=== PATIENT | male | born 1960 | race Caucasian/White ===

== ENCOUNTER 2022-07-26 10:36 | Outpatient (RCR) | payer MEDICARE, MEDICAID, SELFPAY | END 2022-07-26 16:00 | disposition home or self-care (01) | LOC: HO.WCC 10:36 | PROVIDERS: PCP Nurse Practitioner; Visit Provider Physician Assistant | DX: L89.620 Pressure ulcer of left heel, unstageable (principal); L89.610 Pressure ulcer of right heel, unstageable; L97.812 Non-pressure chronic ulcer of other part of right lower leg with fat layer exposed; L97.524 Non-pressure chronic ulcer of other part of left foot with necrosis of bone; M86.072 Acute hematogenous osteomyelitis, left ankle and foot; G90.09 Other idiopathic peripheral autonomic neuropathy; I10 Essential (primary) hypertension; F17.210 Nicotine dependence, cigarettes, uncomplicated | CPT/HCPCS: 11042; 11044; 11045; 87070; 87077; 87147; 87186; 87205 ==

== ENCOUNTER 2022-07-26 13:25 | Inpatient (IN) | payer MEDICARE, SELFPAY ==
--- NOTE | ~2022-07-26 | XR_ITS ---
EXAMINATION: XR CALCANEUS, RIGHT CLINICAL INFORMATION: Ulcer. Evaluate for osteomyelitis. COMPARISON: None TECHNIQUE: Lateral and axial views of the right calcaneus were obtained. FINDINGS: There is a bandage at the posterior heel. There is irregularity of the skin line consistent with history of ulcer. There has been prior amputation of the fifth metatarsal through the proximal diaphyseal shaft of the metatarsal. No acute osseous abnormality. No bone destruction. No radiographic evidence for osteomyelitis. XR/XR calcaneus RT min 2V IMPRESSION: 1. Skin ulcer at the posterior heel. No radiographic evidence for osteomyelitis. MRI would be more sensitive for detection of osteomyelitis. 2. Status post amputation of fifth metatarsal.
--- NOTE | ~2022-07-26 | CT_ITS ---
EXAMINATION: CT FOOT WITH CONTRAST, RIGHT CT FOOT WITH CONTRAST, LEFT CLINICAL INFORMATION: Ulcers. Heel ulcer. COMPARISON: Calcaneal radiograph dated 07/26/2022 TECHNIQUE: Multidetector volumetric imaging was obtained through both feet following intravenous administration of 85 cc Omnipaque 350. Multiplanar reformatted images in coronal and sagittal orientations were submitted. This CT examination was performed using dose optimization techniques as appropriate, variously including the following: *Automated exposure control *Adjustment of mA and/or kV according to patient size (this includes techniques or standardized protocols for targeted exams where dose is matched to indication/reason for exam; i.e. extremities or head) *Use of iterative reconstruction technique DLP: 183 mGy-cm FINDINGS: Right: Soft tissues are swollen at the right foot with significant skin thickening generalized skin thickening and irregularity. A skin wound is suspected posteriorly over the calcaneal tuberosity. There is marked underlying fat stranding with loss of subcutaneous fat attenuation. The great toe is absent. There is significant skin thickening and underlying fat stranding at the stump. There is a small collection of fluid and gas at the distal margin of the second toe distal phalanx with focal bone loss/remodeling along the distal phalangeal tuft, concerning for osteomyelitis and a small overlying abscess. The collection of fluid and gas is very small, measuring approximately 1.4 x 0.7 x 0.6 cm. A small skin wound may also be present at the distal margin of the third toe. The fifth toe and distal two thirds of the fifth metatarsal are surgically absent. No focal osseous erosion is identified in the region of the calcaneal tuberosity deep to the posterior ulcer. No appreciable findings of osteomyelitis are identified at the ankle, hindfoot, and midfoot. No joint effusions. Mild talocrural osteoarthritis. Mild osteophytes in the midfoot at the tarsometatarsal joints. Musculature is atrophic and fatty replaced. No appreciable tenosynovitis. Scratch that Left: Soft tissues are swollen with skin thickening and subcutaneous edema. There is a skin ulcer at the posterolateral aspect of the hindfoot overlying the calcaneal tuberosity with loss of the normal fat attenuation. No underlying fluid collections are identified in this region. No appreciable erosive change at the calcaneus to indicate acute osteomyelitis. A skin ulcer is present at the dorsal aspect of the great toe at the level of the interphalangeal joint measuring roughly 2.5 x 1.5 cm in area extending to the depth of bone. There is erosion at the dorsal aspect of the great toe proximal phalangeal head in this region. There is slight plantar subluxation of the distal phalanx, likely with disruption of the dorsal joint capsule. There is slight valgus angulation at the great toe IP joint. No additional ulcers are identified by CT. No peripherally enhancing fluid collections are identified. No appreciable tenosynovitis. No joint effusions. Foot musculature is diffusely atrophic and fatty replaced. There is minimal osteoarthritis in the talocrural joint. Midfoot appears relatively well-preserved. Multiple claw toe deformities. CT/CT foot LT w IV con IMPRESSION: 1. Posterior skin wounds overlying the bilateral calcaneal tuberosities with s concerning soft tissue inflammation. No appreciable findings of underlying osteomyelitis or abscess. 2. A small 1.4 cm abscess in the distal margin of the second toe distal phalanx with underlying cortical osteolysis at the distal phalangeal tuft, consistent with osteomyelitis. 3. Dorsal ulcer at the great toe IP joint with erosion at the dorsal aspect of the great toe proximal phalangeal head, most consistent with osteomyelitis. There is associated disruption of the IP joint capsule with plantar and valgus subluxation of the distal phalanx. 4. Diffuse soft tissue swelling and subcutaneous edema in the left foot. No abscess.
--- NOTE | ~2022-07-26 | XR_ITS ---
EXAMINATION: XR CALCANEUS, LEFT CLINICAL INFORMATION: Ulcers. Evaluate for osteomyelitis. COMPARISON: None TECHNIQUE: Lateral and axial views of the left calcaneus were obtained. FINDINGS: There is a bandage along the posterior heel. There is evidence of soft tissue ulceration at the posterior heel. There is no bone destruction or abnormal periosteal reaction. There is no radiographic evidence for osteomyelitis. Small plantar calcaneal spur. XR/XR calcaneus LT min 2V IMPRESSION: Soft tissue ulceration at the posterior heel. There is no radiographic evidence for osteomyelitis. MRI would be more sensitive for detection of osteomyelitis.
--- NOTE | ~2022-07-26 | US_ITS ---
EXAMINATION: NONINVASIVE ASSESSMENT OF THE ARTERIES OF BOTH LOWER EXTREMITIES WITH PVR EXAM AND BILATERAL LOWER EXTREMITY DUPLEX Mackenzie Regan MD CLINICAL INFORMATION: Nonhealing ulcer TECHNIQUE: Ankle pulse volume recordings, ankle pressure measurements and ankle brachial indices were obtained of the lower extremity arterial system bilaterally in addition to duplex Doppler techniques with wave form analysis and measurement of velocities in the common femoral, profunda femoral, superficial femoral, popliteal and tibial arteries. The study was performed only at rest. COMPARISON: None FINDINGS: a) AT REST: RIGHT LE. The right ankle-brachial index is: 1.08 * >0.97-1.25 = normal - no significant arterial disease * 0.75-0.96 = mild peripheral arterial disease * 0.5-0.74 = moderate peripheral arterial disease * <0.50 = severe peripheral arterial disease 2. Right ankle pressure: Normal 3. Right ankle PVR waveform: Abnormal 4. Right direct duplex Doppler findings: Common femoral artery: 132 cm/s, Multiphasic Profunda femoris artery: 96 cm/s, Multiphasic Superficial femoral artery (proximal): 149 cm/s, Multiphasic Superficial femoral artery (mid): 130 cm/s, Multiphasic Superficial femoral artery (distal): 111 cm/s, Multiphasic Proximal Popliteal artery: 100 cm/s, Multiphasic Mid posterior tibial artery: 182 cm/s, Multiphasic LEFT LE. The left ankle-brachial index is: 1.31 * >0.97-1.25 = normal - no significant arterial disease * 0.75-0.96 = mild peripheral arterial disease * 0.5-0.74 = moderate peripheral arterial disease * <0.50 = severe peripheral arterial disease 2. Left ankle pressure: normal. 3. Left ankle PVR waveform: Abnormal 4. Left direct duplex Doppler findings: Common femoral artery: 160 cm/s, Multiphasic Profunda femoris artery: 125 cm/s, Multiphasic Superficial femoral artery (proximal): 171 cm/s, Multiphasic Superficial femoral artery (mid): 160 cm/s, Multiphasic Superficial femoral artery (distal): 210 cm/s, Multiphasic Proximal Popliteal artery: 144 cm/s, Multiphasic Mid posterior tibial artery: 177 cm/s, Multiphasic There are bilateral prominent inguinal lymph nodes with normal morphology US/US arterial duplex LE BI IMPRESSION: RIGHT LEG: Scattered areas of mild stenosis throughout the right lower extremity. Abnormal ankle PVR. LEFT LEG: Scattered areas of mild-moderate stenosis throughout the left lower extremity, particularly in the SFA. Abnormal ankle PVR.
--- NOTE | ~2022-07-26 | XR_ITS ---
EXAMINATION: XR TOES, LEFT CLINICAL INFORMATION: Ulceration. Concern for osteomyelitis. COMPARISON: None TECHNIQUE: 3 views of the left toes were obtained. FINDINGS: There is a bandage over the great toe. Irregularity of the skin at the distal medial side of the great toe suggesting ulceration. There is no air in the soft tissue. There is loss of definition of the distal tuft of the distal phalanx of the great toe. This is best appreciated on the lateral view. This is concerning for osteomyelitis. There is also loss of bone of the distal phalange of the second and third toe again best appreciated on lateral view there is no substantial soft tissue swelling evident by plain film of these toes. Clinically correlate. XR/XR toe LT min 2V IMPRESSION: 1. Irregularity of the skin at the distal medial side of the great toe suggesting ulceration. 2. Loss of definition of the distal tuft of the distal phalanx of the great toe concerning for osteomyelitis. MRI would be helpful for further evaluation. 3. Loss of bone of the distal phalange of the second and third toe. Clinically correlate.
[2022-07-26 13:29] VITALS: BP 99/46; PULSE 103; RESP 20; TEMP 37.4; O2SAT 98; BMI 25.7
--- NOTE | 2022-07-26 13:29 | ED_ITS ---
HPI - General Adult General Chief complaint: Skin/Abscess/Foreign Body <LES Jones - Last Filed: 07/26/22 13:34> Stated complaint: L big toe wound sent by wound clinic <LES Jones - Last Filed: 07/26/22 13:34> Time Seen by Provider: 07/26/22 18:25 <LES Jones - Last Filed: 07/26/22 13:34> Source: patient <Ivan Erazo MD - Last Filed: 07/26/22 22:53> Mode of arrival: ambulatory <Ivan Erazo MD - Last Filed: 07/26/22 22:53> Limitations: no limitations <Ivan Erazo MD - Last Filed: 07/26/22 22:53> History of Present Illness HPI narrative: Patient history of chronic low back pain, hypertension, peripheral neuropathy injured his left greater toe 2 months ago since then having nonhealing wound on the dorsum of the greater toe also been having deep ulceration with eschar formation bilateral heel with foul-smelling discharge does have a nurse come to his house for dressing seen by wound clinic today who sent him here for further evaluation as the x-ray showed involvement of the bone of the greater toe x-ray of the heel showed bilateral soft tissue ulcerations without any bony erosion no gas was seen. Patient denies any fever or chills has not taken any antibiotics for this so far, patient has amputation of the right greater toe for same reason in 05/13 patient had vascular studies same time which showed good blood flow. Patient has his peripheral neuropathy for last 20 years been to various doctors and had multiple MRIs of the lumbar spine which likely the cause for neuropathy patient is on gabapentin. <Ivan Erazo MD - Last Filed: 07/26/22 22:53> Related Data Home medications: Home Medications Medication Instructions Recorded Confirmed amlodipine 2.5 mg tablet 2.5 mg PO BID 07/26/22 07/26/22 aspirin 81 mg chewable tablet 81 mg PO DAILY 07/26/22 07/26/22 atorvastatin 80 mg tablet 80 mg PO BEDTIME 07/26/22 07/26/22 xrimyznxej-[id number] 1 tab PO DAILY PRN headache 07/26/22 07/26/22 50 mg-325 mg-40 mg tablet cyclobenzaprine 10 mg tablet 1 tab PO BID PRN Back Pain 07/26/22 07/26/22 docusate sodium 100 mg capsule 300 mg PO DAILY 07/26/22 07/26/22 (Colace) gabapentin 300 mg capsule 1 cap PO BID 07/26/22 07/26/22 morphine 60 mg tablet,extended 60 mg PO Q12H 07/26/22 07/26/22 release trazodone 100 mg tablet 100 mg PO BEDTIME 07/26/22 07/26/22 <LES Jones - Last Filed: 07/26/22 13:34> Allergies/adverse reactions: Allergies Allergy/AdvReac Type Severity Reaction Status Date / Time No Known Allergies Allergy Verified 07/26/22 13:32 <LES Jones - Last Filed: 07/26/22 13:34> Review of Systems Review of Systems: Yes all other systems are reviewed and are negative <Ivan Erazo MD - Last Filed: 07/26/22 22:53> [facility] Past Medical History Medical History: Medical History Amputated toe of right foot Brain aneurysm Hypertension <LES Jones - Last Filed: 07/26/22 13:34> Surgical History: Surgical History History of cholecystectomy Hx of CABG <LES Jones - Last Filed: 07/26/22 13:34> Social History Social History: Social History Alcohol intake: never Smoked in Last 30 Days: Yes Use of substances other than those prescribed or required for medical reasons: No Advance Directives: No Advance Directives Information Provided: No <LES Jones - Last Filed: 07/26/22 13:34> Physical Exam ED Vital Signs: Vital Signs - 24 hr 07/26/22 13:29 07/26/22 19:07 Temperature 99.4 F 99.1 F Pulse Rate 103 H 87 Respiratory Rate 20 18 Blood Pressure 99/46 L 130/50 L Pulse Oximetry 98 99 Oxygen Delivery Method Room Air Room Air BMI result Body Mass Index 25.7 <LES Jones - Last Filed: 07/26/22 13:34> Vital Signs - 24 hr 07/26/22 13:29 07/26/22 19:07 Temperature 99.4 F 99.1 F Pulse Rate 103 H 87 Respiratory Rate 20 18 Blood Pressure 99/46 L 130/50 L Pulse Oximetry 98 99 Oxygen Delivery Method Room Air Room Air BMI result Body Mass Index 25.7 <Ivan Erazo MD - Last Filed: 07/26/22 22:53> Appearance: Alert. Oriented X3. No acute distress. Eyes: PERRLA, No Nystagmus ENT: Pharynx normal. Oral Mucosa moist Neck: Normal inspection. Neck supple. CVS: Normal heart rate and rhythm. Pulses normal. Respiratory: No respiratory distress. Equal air entry bilateral, no wheezing/rales/rhonchi Abdomen: Soft and nontender. Bowel sounds are present, no mass palpable, no CVA tenderness Skin: Skin warm and dry. Normal skin color. Normal skin turgor. Extremities: No lower extremity edema. No calf tenderness decreased dorsalis pedis pulsation bilateral lower extremity, feet are warm bilaterally Neuro: Oriented X 3. No motor deficit. Decreased sensation to light touch and pinprick till knee bilateral.No cerebellar signs , cranial nerves II-XII intact <Ivan Erazo MD - Last Filed: 07/26/22 22:53> Course Course Course Narrative: RME - 61 yo male with history of pre-diabetes, neuropathy, CAD s/p CABG x3, PVD with history of 2 toe amputations on the right foot who presents to the ER from [facility] for evaluation of a left great toe wound that has been worsening for the last 2 months. Today was the 1st time at the Wound Clinic - they did some debridement, there was exposed bone and they were concerned for osteomyelitis so patient was sent to the ER for further evaluation. Has not been on antibiotics since May. No fevers at home. Plan: labs, XRs, blood cultures, possible admission, dispo pending results <LES Jones - Last Filed: 07/26/22 13:34> Medications Administered Discontinued Medications Generic Name Dose Route Start Last Admin Trade Name Freq PRN Reason Stop Dose Admin Piperacillin Sod/Tazobactam 50 mls @ 100 mls/hr 07/26/22 19:48 07/26/22 20:26 Sod 3.375 gm/ Sodium Chloride IV 07/26/22 20:17 100 mls/hr ONCE ONE Administration Sodium Chloride 1,000 mls @ 999 mls/hr 07/26/22 19:49 07/26/22 20:11 Ns IV 07/26/22 20:49 999 mls/hr .Q1H1M ONE Administration Vancomycin HCl 2,000 mg in 520 mls @ 260 mls/hr 07/26/22 20:00 07/26/22 20:57 Vancomycin/Ns IV 07/26/22 21:59 260 mls/hr ONCE ONE Administration <LES Jones - Last Filed: 07/26/22 13:34> Medications Administered Discontinued Medications Generic Name Dose Route Start Last Admin Trade Name Freq PRN Reason Stop Dose Admin Piperacillin Sod/Tazobactam 50 mls @ 100 mls/hr 07/26/22 19:48 07/26/22 20:26 Sod 3.375 gm/ Sodium Chloride IV 07/26/22 20:17 100 mls/hr ONCE ONE Administration Sodium Chloride 1,000 mls @ 999 mls/hr 07/26/22 19:49 07/26/22 20:11 Ns IV 07/26/22 20:49 999 mls/hr .Q1H1M ONE Administration Vancomycin HCl 2,000 mg in 520 mls @ 260 mls/hr 07/26/22 20:00 07/26/22 20:57 Vancomycin/Ns IV 07/26/22 21:59 260 mls/hr ONCE ONE Administration <Ivan Erazo MD - Last Filed: 07/26/22 22:53> Medical Decision Making Medical Decision Making MDM Narrative: Patient with nonhealing wound of bilateral heels and left greater toe x- ray showed bony erosions suggestive of osteomyelitis will admit patient for IV antibiotic and surgical evaluation for amputation <Ivan Erazo MD - Last Filed: 07/26/22 22:53> Consult Healthcare Provider Management of the patient was discussed with: Hospitalist <Ivan Erazo MD - Last Filed: 07/26/22 22:53> Lab Data [facility] Lab Attestation statement: I reviewed the patient's lab results. <Ivan Erazo MD - Last Filed: 07/26/22 22:53> Result Diagrams: 07/26/22 15:51 07/26/22 15:51 <LES Jones - Last Filed: 07/26/22 13:34> Labs: Lab Results 07/26/22 07/26/22 07/26/22 Range/Units 15:51 15:51 15:51 WBC 5.5 (4.8-10.8) X10*3/uL RBC 3.28 L (4.60-5.80) X10*6/uL Hgb 8.9 L (14.0-18.0) g/dl Hct 28.9 L (42.0-52.0) % MCV 88.1 (80.0-98.0) fL MCH 27.1 (27.0-33.0) pg MCHC 30.8 L (31.0-36.0) g/dl RDW 15.3 (11.0-16.0) % Plt Count 225 (160-400) X10*3/uL MPV 9.9 (9.4-12.4) fL Immature Gran % (Auto) 0.2 (0.0-0.4) % Neut % (Auto) 74.1 H (45-73) % Lymph % (Auto) 16.3 L (20-40) % Jack % (Auto) 8.7 (2-11) % Eos % (Auto) 0.5 (0-4) % Baso % (Auto) 0.2 (0-2) % Lymph # (Auto) 0.9 L (1.2-4.9) X10*3/uL Jack # (Auto) 0.5 (0.1-1.2) X10*3/uL Eos # (Auto) 0.0 (0.0-0.4) X10*3/uL Baso # (Auto) 0.0 (0.0-0.2) X10*3/uL Abs Immat Gran (auto) 0.01 (0.00-0.03) X10*3/uL Absolute Neuts (auto) 4.1 (2.0-8.3) x10*3/uL Absolute Nucleated RBC 0.000 (0.0-0.012) X10*3/uL Nucleated RBC % (auto) 0.0 (0.0-0.2) /100WBC Smear Tech's Comments VERIFIED ESR 86 H (0-15) MM/HR Sodium 134 L (135-145) mmol/L Potassium 4.4 (3.3-5.1) mmol/L Chloride 101 (96-108) mmol/L Carbon Dioxide 25 (22-29) mmol/L Anion Gap 12 (12-20) BUN 14 (9-16) mg/dL Creatinine 0.70 (0.5-1.4) mg/dL Estim Creat Clear Calc 103.6 Estimated GFR > 60 Random Glucose 106 (60-115) mg/dL Lactic Acid (0.5-2.0) mmol/L Calcium 8.1 L (8.4-10.2) mg/dL Magnesium 1.8 (1.6-2.6) mg/dL Total Bilirubin 0.5 (0.0-1.0) mg/dL Direct Bilirubin 0.2 (0.0-0.5) mg/dL AST 21 (5-37) U/L ALT 14 (0-40) U/L Alkaline Phosphatase 105 (39-117) U/L C-Reactive Protein 7.13 H (< or = 0.50) mg/dL Total Protein 7.4 (6.5-8.0) g/dL Albumin 3.5 (3.5-5.0) g/dL Urine Color Urine Appearance Urine pH (5.0-9.0) Ur Specific [place] (1.005-1.025) Urine Protein (Neg-Trace) mg/dL Urine Glucose (UA) (Negative) mg/dL Urine Ketones (Negative) mg/dL Urine Blood (Negative) Urine Nitrite (Negative) Ur Leukocyte Esterase (Negative) COVID-19 (ASHER) (Negative) COVID-19 Clin Com 07/26/22 07/26/22 07/26/22 Range/Units 15:51 15:51 15:58 WBC (4.8-10.8) X10*3/uL RBC (4.60-5.80) X10*6/uL Hgb (14.0-18.0) g/dl Hct (42.0-52.0) % MCV (80.0-98.0) fL MCH (27.0-33.0) pg MCHC (31.0-36.0) g/dl RDW (11.0-16.0) % Plt Count (160-400) X10*3/uL MPV (9.4-12.4) fL Immature Gran % (Auto) (0.0-0.4) % Neut % (Auto) (45-73) % Lymph % (Auto) (20-40) % Jack % (Auto) (2-11) % Eos % (Auto) (0-4) % Baso % (Auto) (0-2) % Lymph # (Auto) (1.2-4.9) X10*3/uL Jack # (Auto) (0.1-1.2) X10*3/uL Eos # (Auto) (0.0-0.4) X10*3/uL Baso # (Auto) (0.0-0.2) X10*3/uL Abs Immat Gran (auto) (0.00-0.03) X10*3/uL Absolute Neuts (auto) (2.0-8.3) x10*3/uL Absolute Nucleated RBC (0.0-0.012) X10*3/uL Nucleated RBC % (auto) (0.0-0.2) /100WBC Smear Tech's Comments ESR (0-15) MM/HR Sodium (135-145) mmol/L Potassium (3.3-5.1) mmol/L Chloride (96-108) mmol/L Carbon Dioxide (22-29) mmol/L Anion Gap (12-20) BUN (9-16) mg/dL Creatinine (0.5-1.4) mg/dL Estim Creat Clear Calc Estimated GFR Random Glucose (60-115) mg/dL Lactic Acid 1.7 (0.5-2.0) mmol/L Calcium (8.4-10.2) mg/dL Magnesium (1.6-2.6) mg/dL Total Bilirubin (0.0-1.0) mg/dL Direct Bilirubin (0.0-0.5) mg/dL AST (5-37) U/L ALT (0-40) U/L Alkaline Phosphatase (39-117) U/L C-Reactive Protein (< or = 0.50) mg/dL Total Protein (6.5-8.0) g/dL Albumin (3.5-5.0) g/dL Urine Color Yellow Urine Appearance Clear Urine pH 6.5 (5.0-9.0) Ur Specific [place] 1.015 (1.005-1.025) Urine Protein Trace (Neg-Trace) mg/dL Urine Glucose (UA) Negative (Negative) mg/dL Urine Ketones Negative (Negative) mg/dL Urine Blood Negative (Negative) Urine Nitrite Negative (Negative) Ur Leukocyte Esterase Negative (Negative) COVID-19 (ASHER) Negative (Negative) COVID-19 Clin Com See Note <LES Jones - Last Filed: 07/26/22 13:34> Lab Results 07/26/22 07/26/22 07/26/22 Range/Units 15:51 15:51 15:51 WBC 5.5 (4.8-10.8) X10*3/uL RBC 3.28 L (4.60-5.80) X10*6/uL Hgb 8.9 L (14.0-18.0) g/dl Hct 28.9 L (42.0-52.0) % MCV 88.1 (80.0-98.0) fL MCH 27.1 (27.0-33.0) pg MCHC 30.8 L (31.0-36.0) g/dl RDW 15.3 (11.0-16.0) % Plt Count 225 (160-400) X10*3/uL MPV 9.9 (9.4-12.4) fL Immature Gran % (Auto) 0.2 (0.0-0.4) % Neut % (Auto) 74.1 H (45-73) % Lymph % (Auto) 16.3 L (20-40) % Jack % (Auto) 8.7 (2-11) % Eos % (Auto) 0.5 (0-4) % Baso % (Auto) 0.2 (0-2) % Lymph # (Auto) 0.9 L (1.2-4.9) X10*3/uL Jack # (Auto) 0.5 (0.1-1.2) X10*3/uL Eos # (Auto) 0.0 (0.0-0.4) X10*3/uL Baso # (Auto) 0.0 (0.0-0.2) X10*3/uL Abs Immat Gran (auto) 0.01 (0.00-0.03) X10*3/uL Absolute Neuts (auto) 4.1 (2.0-8.3) x10*3/uL Absolute Nucleated RBC 0.000 (0.0-0.012) X10*3/uL Nucleated RBC % (auto) 0.0 (0.0-0.2) /100WBC Smear Tech's Comments VERIFIED ESR 86 H (0-15) MM/HR Sodium 134 L (135-145) mmol/L Potassium 4.4 (3.3-5.1) mmol/L Chloride 101 (96-108) mmol/L Carbon Dioxide 25 (22-29) mmol/L Anion Gap 12 (12-20) BUN 14 (9-16) mg/dL Creatinine 0.70 (0.5-1.4) mg/dL Estim Creat Clear Calc 103.6 Estimated GFR > 60 Random Glucose 106 (60-115) mg/dL Lactic Acid (0.5-2.0) mmol/L Calcium 8.1 L (8.4-10.2) mg/dL Magnesium 1.8 (1.6-2.6) mg/dL Total Bilirubin 0.5 (0.0-1.0) mg/dL Direct Bilirubin 0.2 (0.0-0.5) mg/dL AST 21 (5-37) U/L ALT 14 (0-40) U/L Alkaline Phosphatase 105 (39-117) U/L C-Reactive Protein 7.13 H (< or = 0.50) mg/dL Total Protein 7.4 (6.5-8.0) g/dL Albumin 3.5 (3.5-5.0) g/dL Urine Color Urine Appearance Urine pH (5.0-9.0) Ur Specific [place] (1.005-1.025) Urine Protein (Neg-Trace) mg/dL Urine Glucose (UA) (Negative) mg/dL Urine Ketones (Negative) mg/dL Urine Blood (Negative) Urine Nitrite (Negative) Ur Leukocyte Esterase (Negative) COVID-19 ([facility]ER) (Negative) COVID-19 Clin Com 07/26/22 07/26/22 07/26/22 Range/Units 15:51 15:51 15:58 WBC (4.8-10.8) X10*3/uL RBC (4.60-5.80) X10*6/uL Hgb (14.0-18.0) g/dl Hct (42.0-52.0) % MCV (80.0-98.0) fL MCH (27.0-33.0) pg MCHC (31.0-36.0) g/dl RDW (11.0-16.0) % Plt Count (160-400) X10*3/uL MPV (9.4-12.4) fL Immature Gran % (Auto) (0.0-0.4) % Neut % (Auto) (45-73) % Lymph % (Auto) (20-40) % Jack % (Auto) (2-11) % Eos % (Auto) (0-4) % Baso % (Auto) (0-2) % Lymph # (Auto) (1.2-4.9) X10*3/uL Jack # (Auto) (0.1-1.2) X10*3/uL Eos # (Auto) (0.0-0.4) X10*3/uL Baso # (Auto) (0.0-0.2) X10*3/uL Abs Immat Gran (auto) (0.00-0.03) X10*3/uL Absolute Neuts (auto) (2.0-8.3) x10*3/uL Absolute Nucleated RBC (0.0-0.012) X10*3/uL Nucleated RBC % (auto) (0.0-0.2) /100WBC Smear Tech's Comments ESR (0-15) MM/HR Sodium (135-145) mmol/L Potassium (3.3-5.1) mmol/L Chloride (96-108) mmol/L Carbon Dioxide (22-29) mmol/L Anion Gap (12-20) BUN (9-16) mg/dL Creatinine (0.5-1.4) mg/dL Estim Creat Clear Calc Estimated GFR Random Glucose (60-115) mg/dL Lactic Acid 1.7 (0.5-2.0) mmol/L Calcium (8.4-10.2) mg/dL Magnesium (1.6-2.6) mg/dL Total Bilirubin (0.0-1.0) mg/dL Direct Bilirubin (0.0-0.5) mg/dL AST (5-37) U/L ALT (0-40) U/L Alkaline Phosphatase (39-117) U/L C-Reactive Protein (< or = 0.50) mg/dL Total Protein (6.5-8.0) g/dL Albumin (3.5-5.0) g/dL Urine Color Yellow Urine Appearance Clear Urine pH 6.5 (5.0-9.0) Ur Specific [place] 1.015 (1.005-1.025) Urine Protein Trace (Neg-Trace) mg/dL Urine Glucose (UA) Negative (Negative) mg/dL Urine Ketones Negative (Negative) mg/dL Urine Blood Negative (Negative) Urine Nitrite Negative (Negative) Ur Leukocyte Esterase Negative (Negative) COVID-19 ([facility]ER) Negative (Negative) COVID-19 Clin Com See Note <Ivan Erazo MD - Last Filed: 07/26/22 22:53> Discharge Plan Discharge Clinical Impression: Osteomyelitis of great toe of left foot, Nonhealing ulcer of heel <LES Jones - Last Filed: 07/26/22 13:34> Patient Disposition: Admitted As Inpatient <LES Jones - Last Filed: 07/26/22 13:34>
--- NOTE | 2022-07-26 15:59 | MHC.EDTECH ---
pt blood drawn including blood culture and lactic acid ,covid swab and urine sample all sent to lab .
[2022-07-26 16:00] LABS: Basophils Percent Auto 0.2 % (0-2); Hematocrit 28.9 % (42.0-52.0); Hemoglobin 8.9 g/dl (14.0-18.0); Mean Corpuscular HGB Conc 30.8 g/dl (31.0-36.0); Mean Corpuscular Hemoglobin 27.1 pg (27.0-33.0); Mean Corpuscular Volume 88.1 fL (80.0-98.0); PLT CLUMP 1; Red Blood Count 3.28 X10*6/uL (4.60-5.80); SCAN SMEAR FLAG 1
[2022-07-26 16:02] LABS: Eosinophils Percent Auto 0.5 % (0-4); Imm Gran Abs Auto 0.01 X10*3/uL (0.00-0.03); Imm Gran Pct Auto 0.2 % (0.0-0.4); Lymphocytes Absolute Auto 0.9 X10*3/uL (1.2-4.9); Lymphocytes Percent Auto 16.3 % (20-40); MANUAL DIFF FLAG SCAN; Mean Platelet Volume 9.9 fL (9.4-12.4); Monocytes Absolute Auto 0.5 X10*3/uL (0.1-1.2); Monocytes Percent Auto 8.7 % (2-11); Neutrophils Absolute Auto 4.1 x10*3/uL (2.0-8.3); Neutrophils Percent Auto 74.1 % (45-73); Red Cell Distribution Width 15.3 % (11.0-16.0)
[2022-07-26 16:13] LABS: Lactic Acid 1.7 mmol/L (0.5-2.0)
[2022-07-26 16:19] LABS: Alanine Aminotransferase 14 U/L (0-40); Albumin Level 3.5 g/dL (3.5-5.0); Alkaline Phosphatase 105 U/L (39-117); Anion Gap 12 (12-20); Aspartate Amino Transferase 21 U/L (5-37); Bilirubin Direct 0.2 mg/dL (0.0-0.5); Bilirubin Total 0.5 mg/dL (0.0-1.0); Blood Urea Nitrogen 14 mg/dL (9-16); C Reactive Protein 7.13 mg/dL (< or = 0.50); Calcium 8.1 mg/dL (8.4-10.2); Carbon Dioxide 25 mmol/L (22-29); Chloride 101 mmol/L (96-108); Creatinine Clr Calc Pharmacy 103.6; Estimated Glomerular Filt Rate > 60; Glucose Random 106 mg/dL (60-115); Magnesium 1.8 mg/dL (1.6-2.6); Potassium 4.4 mmol/L (3.3-5.1); Sodium 134 mmol/L (135-145); Total Protein 7.4 g/dL (6.5-8.0)
[2022-07-26 16:19] LABS: Appearance Urine Clear; Color Urine Yellow; Glucose Urine UA Negative (Negative); Leukocyte Esterase Urine Negative (Negative); Nitrite Urine Negative (Negative); PH 6.5 (5.0-9.0); Specific Gravity - Urine 1.015 (1.005-1.025); Urine Blood Negative (Negative); Urine Ketones Negative (Negative); Urine Protein Trace mg/dL (Neg-Trace)
[2022-07-26 16:20] LABS: COVID-19 Test Negative (Negative); IDNOW Serial# 9DB6401D
[2022-07-26 16:25] LABS: Platelet Count 225 X10*3/uL (160-400); White Blood Count 5.5 X10*3/uL (4.8-10.8)
[2022-07-26 16:26] LABS: SLIDE REVIEW VERIFIED
[2022-07-26 16:36] LABS: Erythrocyte Sedimentation Rate 86 MM/HR (0-15)
[2022-07-26 19:07] VITALS: BP 130/50; PULSE 87; RESP 18; TEMP 37.3; O2SAT 99
--- NOTE | 2022-07-26 19:13 | PC.NURSE ---
pt presents to ER with bilateral foot wounds including Left 1st toe. Sent from Wound clinic. Edema noted in left leg, both legs warm to touch. Oral temp 99.1 - VS otherwise WNL.
[2022-07-26] MEDS: 0.9 % Sodium Chloride 1,000 ML 999 ML IV (20:11)
--- NOTE | 2022-07-26 20:12 | PC.NURSE ---
IV inserted, NS running per order
--- NOTE | 2022-07-26 20:20 | PC.NURSE ---
pt wound was undressed and redressed by . Did not visualize wound
[2022-07-26] MEDS: Piperacillin Sodium/Tazobactam 3.375 GM in 0.9 % Sodium Chloride 50 ML IV (20:26)
--- NOTE | 2022-07-26 20:26 | PC.NURSE ---
Zosyn hanging per order. pt in no apparent distress. will continue to monitor.
--- NOTE | 2022-07-26 20:38 | PHA.MEDREC ---
Pharmacy Consult ? Medication Reconciliation Pharmacy has completed the medication reconciliation.
--- NOTE | 2022-07-26 20:59 | PC.NURSE ---
jerardo running per order. daughter at bedside. pharmacy came for med rec.
--- NOTE | 2022-07-26 22:17 | PHA.PROG ---
Admission Date/Time: Indication: Cellulitis Weight in k.389 kg Adjusted body weight in K.416 kg [place] body weight in K.1 kg Obesity Dosing Indication % IBW: 112% Serum Creatinine - Last 168 Hours 07/26/22 15:51 Creatinine 0.70 Estimated CrCl and GFR - Last 168 Hours 07/26/22 15:51 Estim Creat Clear Calc 103.6 Estimated GFR > 60 Vancomycin Loading Dose: 2000 mg Current Vancomycin Dosing Regimen: 1000 mg Q12H Date and Time for next Vancomycin Level to be drawn: 07/28 @ 0700 Pharmacist Comments on Vancomycin Plan: Patient received an adequate loading dose of vanco 2000 mg on 07/26 @ 2056 Maintenance dose vanco 1000 mg Q12H is scheduled to start 07/27 @ 0900. Expected AUC 458 with a trough of 13.7. Level is schedule to be drawn prior to 4th dose Pharmacy will monitor renal function daily. Letty Ibarra, Christophe Vancomycin dosing will take advantage of [employer] as a clinical decision support tool that uses Bayesian modeling to calculate individual patient's pharmacokinetic parameters and forecast the patient's drug concentration time course with the target goal AUC 24 range of 400 - 600 mg/L/hr.
--- NOTE | 2022-07-26 23:44 | P.HPHOSP_ITS ---
History of Present Illness Date of Service: 07/26/22 Chief Complaint: Foot ulcers 61M with hx HTN, chronic low back pain, peripheral neuropathy, LEft great toe amputation; b/l Heel ulcer with eschar for 2 months ; non healing toe ulcer; has been having regular dressing and follows wound clinic p/w b/l Heel ulcers with foul smell; pt went to wound clinic and was sen to ER for further eval. pt denies fevers; reports mild increased foul smell; no discharge; reports he has seen vascular surgeon in the past; denies being on antibiotics recently. denies any chest pain, SOB, palpitations. ER course: pt ER physician pt noted to have foul smelling heel ulcers and toe ulcer; no discharge; mentioned Wound clinic team did partial debridement; noted Bone; concerned for osteomyelitis. Given abx; admitted for further management. [facility] Medical History Amputated toe of right foot Brain aneurysm Hypertension Surgical History History of cholecystectomy Hx of CABG Social History Household Members: Children Housing: Apartment Do you presently have visiting nurse or other home services: Yes (wound nurse 2X week) Alcohol intake: never Patient Tobacco Use Status: Current everyday Tobacco user Tobacco use type: Cigarette Cigarettes Per Day: 6 Years Smoked: 40 service: No Current occupational status: disabled Meds Allergies Allergy/AdvReac Type Severity Reaction Status Date / Time No Known Allergies Allergy Verified 07/26/22 13:32 Active Medications: Current Medications Acetaminophen (Acetaminophen 325 Mg Tablet) 650 mg PO Q6H PRN PRN Reason: Pain, Mild (Pain Scale 1-3) Acetaminophen/Butalbital/Caffeine (Butalb/Acetamin/Caff 50/325/40 Tablet) 1 tab PO DAILY PRN PRN Reason: headache Amlodipine Besylate (Amlodipine Besylate 2.5 Mg Tablet) 2.5 mg PO BID ARIELA; Protocol Atorvastatin Calcium (Atorvastatin Calcium 80 Mg Tablet) 80 mg PO BEDTIME ARIELA Cyclobenzaprine HCl (Cyclobenzaprine Hcl 10 Mg Tablet) 10 mg PO BID PRN PRN Reason: Back Pain Docusate Sodium (Docusate Sodium 100 Mg Capsule) 300 mg PO DAILY [facility] Gabapentin (Gabapentin 300 Mg Capsule) 300 mg PO BID [facility] Heparin Sodium (Porcine) (Heparin Sodium,Porcine 5,000 Unit/Ml Vial) 5,000 unit SUBCUT Q8H [facility] Hydromorphone HCl (Hydromorphone Hcl 1 Mg/Ml Syringe) 0.5 mg IVPUSH Q4H PRN; Protocol PRN Reason: Pain, Severe (Pain Scale 7-10) Vancomycin HCl 1,000 mg/ (Sodium Chloride) 270 mls @ 270 mls/hr IV Q12H [facility] Piperacillin Sod/Tazobactam (Sod 3.375 gm/ Sodium Chloride) 50 mls @ 100 mls/hr IV Q6H [facility] Melatonin (Melatonin 3 Mg Tablet) 6 mg PO BEDTIME PRN PRN Reason: Insomnia Morphine Sulfate (Morphine Sulfate Er 30 Mg Tablet.Er) 60 mg PO Q12H [facility] Pharmacy Consult (Consult Rx Vancomycin Dosing) 1 each MISCELLANE DAILY PRN PRN Reason: Consult order Pharmacy Consult (Consult Rx Perform Med Rec) 1 each MISCELLANE ONCE PRN PRN Reason: Consult order Senna (Sennosides 8.6 Mg Tablet) 17.2 mg PO BEDTIME PRN PRN Reason: Constipation Sodium Chloride (0.9 % Sodium Chloride Flush 3 Ml Syringe) 3 ml IVFLUSH QSHIFT [facility] Trazodone HCl (Trazodone Hcl 100 Mg Tablet) 100 mg PO BEDTIME [facility] Home Medications Medication Instructions Recorded Confirmed Last Taken Type aspirin 81 mg chewable tablet 81 mg PO DAILY 07/26/22 07/26/22 07/26/22 History atorvastatin 80 mg tablet 80 mg PO BEDTIME 07/26/22 07/26/22 Unknown History [id number] 1 tab PO DAILY PRN headache 07/26/22 07/26/22 07/26/22 History 50 mg-325 mg-40 mg tablet cyclobenzaprine 10 mg tablet 1 tab PO BID PRN Back Pain 07/26/22 07/26/22 07/26/22 History docusate sodium 100 mg capsule 300 mg PO DAILY 07/26/22 07/26/22 07/26/22 History (Colace) gabapentin 300 mg capsule 1 cap PO BID 07/26/22 07/26/22 07/26/22 History morphine 60 mg tablet,extended 60 mg PO Q12H 07/26/22 07/26/22 07/26/22 History release trazodone 100 mg tablet 100 mg PO BEDTIME 07/26/22 07/26/22 Unknown History Physical Exam Vital Signs and Narrative: Vital Signs: Last Vital Signs Temp 99.1 F 07/26/22 19:07 Pulse 87 07/26/22 19:07 Resp 18 07/26/22 19:07 BP 130/50 L 07/26/22 19:07 Pulse Ox 99 07/26/22 19:07 O2 Del Method 07/26/22 19:07 BMI result Body Mass Index 25.7 Gen: NAD Eyes: PERRLA, No Nystagmus ENT: Pharynx normal. Oral Mucosa moist Neck: Normal inspection.? Neck supple. CVS: Normal heart rate and rhythm.? Pulses normal. Pulm: Equal air entry bilateral,? no wheezing/rales/rhonchi Abdomen: Soft and nontender.? Bowel sounds are present, no mass palpable, no CVA tenderness Skin: Skin warm and dry.? Normal skin color.? Normal skin turgor. Extremities: No lower extremity edema.?Noted Ulcers on b/l heel and Toe ulcer as shown in pictures HAND [employer]IM [employer]: non focal Results Labs 07/26/22 15:51 07/26/22 15:51 Labs: Laboratory Results - last 24 hr 07/26/22 07/26/22 07/26/22 15:51 15:51 15:51 MCV 88.1 MCH 27.1 MCHC 30.8 L RDW 15.3 Plt Count 225 MPV 9.9 Immature Gran % (Auto) 0.2 Neut % (Auto) 74.1 H Lymph % (Auto) 16.3 L [place] % (Auto) 8.7 Eos % (Auto) 0.5 Baso % (Auto) 0.2 Lymph # (Auto) 0.9 L [place] # (Auto) 0.5 Eos # (Auto) 0.0 Baso # (Auto) 0.0 Abs Immat Gran (auto) 0.01 Absolute Neuts (auto) 4.1 Absolute Nucleated RBC 0.000 Nucleated RBC % (auto) 0.0 Smear Tech's Comments VERIFIED ESR 86 H Anion Gap 12 Estim Creat Clear Calc 103.6 Estimated GFR > 60 Random Glucose 106 Lactic Acid Calcium 8.1 L Magnesium 1.8 Total Bilirubin 0.5 Direct Bilirubin 0.2 AST 21 ALT 14 Alkaline Phosphatase 105 C-Reactive Protein 7.13 H Total Protein 7.4 Albumin 3.5 Urine Color Urine Appearance Urine pH Ur Specific [place] Urine Protein Urine Glucose (UA) Urine Ketones Urine Blood Urine Nitrite Ur Leukocyte Esterase COVID-19 ([facility]ER) COVID-19 Clin Com 07/26/22 07/26/22 07/26/22 15:51 15:51 15:58 MCV MCH MCHC RDW Plt Count MPV Immature Gran % (Auto) Neut % (Auto) Lymph % (Auto) [place] % (Auto) Eos % (Auto) Baso % (Auto) Lymph # (Auto) [place] # (Auto) Eos # (Auto) Baso # (Auto) Abs Immat Gran (auto) Absolute Neuts (auto) Absolute Nucleated RBC Nucleated RBC % (auto) Smear Tech's Comments ESR Anion Gap Estim Creat Clear Calc Estimated GFR Random Glucose Lactic Acid 1.7 Calcium Magnesium Total Bilirubin Direct Bilirubin AST ALT Alkaline Phosphatase C-Reactive Protein Total Protein Albumin Urine Color Yellow Urine Appearance Clear Urine pH 6.5 Ur Specific [place] 1.015 Urine Protein Trace Urine Glucose (UA) Negative Urine Ketones Negative Urine Blood Negative Urine Nitrite Negative Ur Leukocyte Esterase Negative COVID-19 (ASHER) Negative COVID-19 Clin Com See Note Imaging Radiologist's Impressions: Impressions Calcaneus X-Ray 07/26/22 14:05 IMPRESSION: Soft tissue ulceration at the posterior heel. There is no radiographic evidence for osteomyelitis. MRI would be more sensitive for detection of osteomyelitis. Calcaneus X-Ray 07/26/22 14:05 IMPRESSION: 1. Skin ulcer at the posterior heel. No radiographic evidence for osteomyelitis. MRI would be more sensitive for detection of osteomyelitis. 2. Status post amputation of fifth metatarsal. Toe X-Ray 07/26/22 14:05 IMPRESSION: 1. Irregularity of the skin at the distal medial side of the great toe suggesting ulceration. 2. Loss of definition of the distal tuft of the distal phalanx of the great toe concerning for osteomyelitis. MRI would be helpful for further evaluation. 3. Loss of bone of the distal phalange of the second and third toe. Clinically correlate. Assessment and Plan (1) Nonhealing ulcer of heel: Status: Acute Plan 61M with hx HTN, chronic low back pain, peripheral neuropathy, LEft great toe amputation; b/l Heel ulcer with eschar for 2 months ; non healing toe ulcer; has been having regular dressing and follows wound clinic p/w b/l Heel ulcers with foul smell; pt went to wound clinic and was sen to ER for further eval given concerns for oisteomyelitis. b/l Heel Ulcers/ Toe ulcer: suspected Osteomyelitis. c/w IV Vanc and Zosyn. ESR/CRP elevated X rays showed Soft tissue ulceration at the posterior heel. There is no radiographic evidence for osteomyelitis Unable to do MRI as pt has Brain aneurysm s/p Clip. ( pt reports that he was told not to go near magnetic [place]) Will obtain CT of b/l Foot ID consult Vascular surgery consult for further inputs. Hx HTN/HLD: c/w home Amliodipine and statin. Held Home Aspirin for now in anticipation for procedure Hx: neuropathy: c/w Home morphine/Gabapentin. DVT ppx: SQH Full code Time Spent With Patient Time: Total time managing care of this patient today ____ minutes. Quality Stroke Does the patient have a stroke diagnosis?: No VTE Prior VTE?: No VTE Risk Level:: Medical - moderate - high VTE Device Contraindication: Treatment Not Indicated VTE Drug Contraindication: N/A - Med Ordered
[2022-07-27 00:09] VITALS: BP 108/62; PULSE 86; RESP 18; TEMP 37.2; O2SAT 98
[2022-07-27] MEDS: Morphine Sulfate ER 30 MG TABLET.ER 60 MG PO ×3 (00:12→23:03)
[2022-07-27] MEDS: amLODIPine Besylate 2.5 MG TABLET PO ×2 (00:13→08:22)
[2022-07-27] MEDS: Gabapentin 300 MG CAPSULE PO ×3 (00:13→20:35)
[2022-07-27] MEDS: 0.9 % Sodium Chloride Flush 3 ML SYRINGE IVFLUSH ×4 (00:13→23:03)
[2022-07-27] MEDS: Atorvastatin Calcium 80 MG TABLET PO ×2 (00:13→20:35)
[2022-07-27] MEDS: Piperacillin Sodium/Tazobactam 3.375 GM in 0.9 % Sodium Chloride 50 ML IV ×4 (02:16→20:35)
[2022-07-27 02:37] VITALS: BP 118/69; PULSE 81; RESP 16; TEMP 36.9; O2SAT 97
[2022-07-27 02:46] VITALS: BMI 25.2
[2022-07-27 06:17] LABS: MANUAL DIFF FLAG NO
[2022-07-27 06:55] LABS: Basophils Percent Auto 0.3 % (0-2); Eosinophils Absolute Auto 0.1 X10*3/uL (0.0-0.4); Eosinophils Percent Auto 1.5 % (0-4); Hematocrit 24.8 % (42.0-52.0); Hemoglobin 7.9 g/dl (14.0-18.0); Imm Gran Abs Auto 0.01 X10*3/uL (0.00-0.03); Imm Gran Pct Auto 0.3 % (0.0-0.4); Lymphocytes Absolute Auto 0.7 X10*3/uL (1.2-4.9); Lymphocytes Percent Auto 18.3 % (20-40); Mean Corpuscular HGB Conc 31.9 g/dl (31.0-36.0); Mean Corpuscular Hemoglobin 27.7 pg (27.0-33.0); Mean Platelet Volume 9.2 fL (9.4-12.4); Monocytes Absolute Auto 0.3 X10*3/uL (0.1-1.2); Monocytes Percent Auto 8.5 % (2-11); Neutrophils Absolute Auto 2.8 x10*3/uL (2.0-8.3); Neutrophils Percent Auto 71.1 % (45-73); Platelet Count 207 X10*3/uL (160-400); Red Blood Count 2.85 X10*6/uL (4.60-5.80); Red Cell Distribution Width 15.3 % (11.0-16.0)
[2022-07-27 07:05] LABS: Anion Gap 11 (12-20); Blood Urea Nitrogen 9 mg/dL (9-16); Calcium 7.7 mg/dL (8.4-10.2); Carbon Dioxide 23 mmol/L (22-29); Chloride 104 mmol/L (96-108); Creatinine Clr Calc Pharmacy 123.4; Creatinine Clr Calc Pharmacy 125.6; Estimated Glomerular Filt Rate > 60; Glucose Random 96 mg/dL (60-115); Potassium 4.3 mmol/L (3.3-5.1); Sodium 134 mmol/L (135-145)
[2022-07-27 07:24] VITALS: BP 97/54; PULSE 80; RESP 12; TEMP 36.7; O2SAT 95
[2022-07-27] MEDS: Docusate Sodium 100 MG CAPSULE 300 MG PO (08:23)
--- NOTE | 2022-07-27 08:50 | MHC.CM.PN ---
IMM DELIVERED PT LIVES IN AN APT WITH DAUGHTER. USES [facility]E FOR MOBILITY, WALKER FOR LONG DISTANCES. ACTIVE WITH [facility] FOR WOUND CARE 2X/WK. RETURN REFERRAL SENT. 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 DP: HOME , RESUME SERVICES WITH [facility], FAMILY WILL TRANSPORT HOME. CM WILL CONTINUE TO FOLLOW.
[2022-07-27] MEDS: vancomycin HCL 1,000 MG in 0.9 % Sodium Chloride 250 ML 270 MG IV ×2 (09:41→21:25)
--- NOTE | 2022-07-27 10:32 | P.PNIM_ITS ---
Subjective Subjective Date of Service: 07/27/22 Interval History: being followed for bilateral heel, left big toe and right medial knee ulcer, patient denies fever chills, tolerating diet with no nausea, no vomiting, no diarrhea was sent to [facility] from wound clinic has been doing daily dressing changes with VNA services 2 times per week able to ambulate with a cane, denies lightheadedness dizziness or headache. Review of Systems Review of Systems: Yes all other systems are reviewed and are negative Physical Exam Vital Signs: Vital Signs: Last Vital Signs Temp 98.1 F 07/27/22 07:24 Pulse 80 07/27/22 07:24 Resp 12 07/27/22 07:24 BP 97/54 L 07/27/22 07:24 Pulse Ox 95 07/27/22 07:24 O2 Del Method 07/27/22 07:24 BMI result Body Mass Index 25.2 Const: Other: General awake alert x3, resting comfortably in no acute distress. Neck is supple no JVD. CVS regular rate rhythm, Respiratory lungs clear to auscultation, no respiratory distress, no wheeze, no rhonchi. Gastrointestinal abdomen soft, nontender, bowel sounds audible, no guarding , no rigidity. Extremities bilateral heel ulcers foul odor, left big toe ulcer and right medial knee ulcer with no drainage, status post right big toe amputation mild nonpitting edema left leg Neuro nonfocal , speech clear. Skin right lower extremity discoloration Objective Data Active Medications Acetaminophen (Acetaminophen 325 Mg Tablet) 650 mg PO Q6H PRN PRN Reason: Pain, Mild (Pain Scale 1-3) Acetaminophen/Butalbital/Caffeine (Butalb/Acetamin/Caff 50/325/40 Tablet) 1 tab PO DAILY PRN PRN Reason: headache Amlodipine Besylate (Amlodipine Besylate 2.5 Mg Tablet) 2.5 mg PO BID [facility]; Protocol Last Admin: 07/27/22 08:22 Dose: 2.5 mg Documented By: JUNE Atorvastatin Calcium (Atorvastatin Calcium 80 Mg Tablet) 80 mg PO BEDTIME [facility] Last Admin: 07/27/22 00:13 Dose: 80 mg Documented By: AMSO Cyclobenzaprine HCl (Cyclobenzaprine Hcl 10 Mg Tablet) 10 mg PO BID PRN PRN Reason: Back Pain Docusate Sodium (Docusate Sodium 100 Mg Capsule) 300 mg PO DAILY [facility] Last Admin: 07/27/22 08:23 Dose: 300 mg Documented By: JUNE Gabapentin (Gabapentin 300 Mg Capsule) 300 mg PO BID [facility] Last Admin: 07/27/22 08:23 Dose: 300 mg Documented By: JUNE Heparin Sodium (Porcine) (Heparin Sodium,Porcine 5,000 Unit/Ml Vial) 5,000 unit SUBCUT Q8H [facility] Last Admin: 07/27/22 10:25 Dose: Not Given Documented By: JUNE Non-Admin Reason: Patient Refused Hydromorphone HCl (Hydromorphone Hcl 1 Mg/Ml Syringe) 0.5 mg IVPUSH Q4H PRN; Protocol PRN Reason: Pain, Severe (Pain Scale 7-10) Vancomycin HCl 1,000 mg/ (Sodium Chloride) 270 mls @ 270 mls/hr IV Q12H [facility] Last Admin: 07/27/22 09:41 Dose: 270 mls/hr Documented By: JUNE Piperacillin Sod/Tazobactam (Sod 3.375 gm/ Sodium Chloride) 50 mls @ 100 mls/hr IV Q6H [facility] Last Infusion: 07/27/22 09:22 Dose: 100 mls/hr Documented By: JUNE Melatonin (Melatonin 3 Mg Tablet) 6 mg PO BEDTIME PRN PRN Reason: Insomnia Morphine Sulfate (Morphine Sulfate Er 30 Mg Tablet.Er) 60 mg PO Q12H [facility] Last Admin: 07/27/22 00:12 Dose: 60 mg Documented By: AMOS Pharmacy Consult (Consult Rx Vancomycin Dosing) 1 each MISCELLANE DAILY PRN PRN Reason: Consult order Pharmacy Consult (Consult Rx Perform Med Rec) 1 each MISCELLANE ONCE PRN PRN Reason: Consult order Senna (Sennosides 8.6 Mg Tablet) 17.2 mg PO BEDTIME PRN PRN Reason: Constipation Sodium Chloride (0.9 % Sodium Chloride Flush 3 Ml Syringe) 3 ml IVFLUSH QSHIFT [facility] Last Admin: 07/27/22 08:22 Dose: 3 ml Documented By: JUNE Trazodone HCl (Trazodone Hcl 100 Mg Tablet) 100 mg PO BEDTIME [facility] Labs 07/27/22 05:47 07/27/22 05:47 Labs: Laboratory Results - last 24 hr 07/26/22 07/26/22 07/26/22 15:51 15:51 15:51 MCV 88.1 MCH 27.1 MCHC 30.8 L RDW 15.3 Plt Count 225 MPV 9.9 Immature Gran % (Auto) 0.2 Neut % (Auto) 74.1 H Lymph % (Auto) 16.3 L [place] % (Auto) 8.7 Eos % (Auto) 0.5 Baso % (Auto) 0.2 Lymph # (Auto) 0.9 L [place] # (Auto) 0.5 Eos # (Auto) 0.0 Baso # (Auto) 0.0 Abs Immat Gran (auto) 0.01 Absolute Neuts (auto) 4.1 Absolute Nucleated RBC 0.000 Nucleated RBC % (auto) 0.0 Smear Tech's Comments VERIFIED ESR 86 H Anion Gap 12 Estim Creat Clear Calc 103.6 Estimated GFR > 60 Random Glucose 106 Lactic Acid Calcium 8.1 L Magnesium 1.8 Total Bilirubin 0.5 Direct Bilirubin 0.2 AST 21 ALT 14 Alkaline Phosphatase 105 C-Reactive Protein 7.13 H Total Protein 7.4 Albumin 3.5 Urine Color Urine Appearance Urine pH Ur Specific [place] Urine Protein Urine Glucose (UA) Urine Ketones Urine Blood Urine Nitrite Ur Leukocyte Esterase COVID-19 ([facility]) COVID-19 Clin Com 07/26/22 07/26/22 07/26/22 15:51 15:51 15:58 MCV MCH MCHC RDW Plt Count MPV Immature Gran % (Auto) Neut % (Auto) Lymph % (Auto) [place] % (Auto) Eos % (Auto) Baso % (Auto) Lymph # (Auto) [place] # (Auto) Eos # (Auto) Baso # (Auto) Abs Immat Gran (auto) Absolute Neuts (auto) Absolute Nucleated RBC Nucleated RBC % (auto) Smear Tech's Comments ESR Anion Gap Estim Creat Clear Calc Estimated GFR Random Glucose Lactic Acid 1.7 Calcium Magnesium Total Bilirubin Direct Bilirubin AST ALT Alkaline Phosphatase C-Reactive Protein Total Protein Albumin Urine Color Yellow Urine Appearance Clear Urine pH 6.5 Ur Specific [place] 1.015 Urine Protein Trace Urine Glucose (UA) Negative Urine Ketones Negative Urine Blood Negative Urine Nitrite Negative Ur Leukocyte Esterase Negative COVID-19 ([facility]) Negative COVID-19 Clin Com See Note 07/27/22 07/27/22 07/27/22 05:47 05:47 05:47 MCV 87.0 MCH 27.7 MCHC 31.9 RDW 15.3 Plt Count 207 MPV 9.2 L Immature Gran % (Auto) 0.3 Neut % (Auto) 71.1 Lymph % (Auto) 18.3 L [place] % (Auto) 8.5 Eos % (Auto) 1.5 Baso % (Auto) 0.3 Lymph # (Auto) 0.7 L [place] # (Auto) 0.3 Eos # (Auto) 0.1 Baso # (Auto) 0.0 Abs Immat Gran (auto) 0.01 Absolute Neuts (auto) 2.8 Absolute Nucleated RBC 0.000 Nucleated RBC % (auto) 0.0 Smear Tech's Comments ESR Anion Gap 11 L Estim Creat Clear Calc 125.6 123.4 Estimated GFR > 60 > 60 Random Glucose 96 Lactic Acid Calcium 7.7 L Magnesium Total Bilirubin Direct Bilirubin AST ALT Alkaline Phosphatase C-Reactive Protein Total Protein Albumin Urine Color Urine Appearance Urine pH Ur Specific [place] Urine Protein Urine Glucose (UA) Urine Ketones Urine Blood Urine Nitrite Ur Leukocyte Esterase COVID-19 ([facility]) COVID-19 Clin Com Assessment and Plan (1) Osteomyelitis of great toe of left foot: Status: Acute (2) Nonhealing ulcer of heel: Status: Acute Plan 61M with hx HTN, chronic low back pain, peripheral neuropathy, LEft great toe amputation; b/l Heel ulcer with eschar for 2 months ; non healing toe ulcer; has been having regular dressing and follows wound clinic p/w b/l Heel ulcers with foul smell; pt went to wound clinic and was sen to ER for further eval given concerns for oisteomyelitis. b/l Heel Ulcers/L big Toe ulcer:?suspected Osteomyelitis. on IV Vanc and Zosyn day 1. follow blood cultures,afebrile nl wbc. ESR 86/CRP elevated x-ray of foot concerning for osteomyelitis of distal phalanx of great toe X rays bilateral calcaneus showed?Soft tissue ulceration at the posterior heel. There is no radiographic evidence for osteomyelitis Unable to do MRI as pt has Brain aneurysm s/p Clip. ( pt reports that he was told not to go near magnetic [place]) CT of b/l Foot ordered continue MS Contin home dose for pain control await ID and vascular surgery recommendation wound care nurse consult for daily dressing to both heels, and left big toe Hx HTN/HLD: c/w home Amliodipine and statin.? aspirin held for possible procedure Hx: neuropathy: Gabapentin 300 b.i.d.. normocytic anemia chronic no active bleed noted follow CBC DVT ppx: SQ Heparin Full code patient need continued inpatient hospitalization for IV antibiotics and further workup for peripheral arterial disease Time Spent With Patient Time: Total time managing care of this patient today ____ minutes. Quality Stroke Does the patient have a stroke diagnosis?: No VTE Prior VTE?: No VTE Risk Level:: Medical - moderate - high VTE Device Contraindication: Treatment Not Indicated VTE Drug Contraindication: N/A - Med Ordered
[2022-07-27 11:37] VITALS: BP 100/60
--- NOTE | 2022-07-27 12:37 | MHC.CLN ---
NUTRITION CONSULT FOR SKIN INTEGRITY. PATIENT WITH NON HEALING ULCERS (UNSTAGEABLE) ON LEFT AND RIGHT HEELS. RIGHT MEDIAL KNEE WITH STAGE III WOUND. IMPAIRED SKIN ON LEFT BIG TOE. GOES TO WOUND CLINIC. DIET=2 GRAM SODIUM. REPORTS THAT EATS WELL. DOES NOT WANT ENSURE SUPPLEMENT. DISCUSSED HIGH PROTEIN FOODS AND ADVISED TO SELECT FOODS WITH HIGHER PROTEIN. FOLLOW FOR INTAKE AND WOUND HEALING.
[2022-07-27 12:42] VITALS: BMI 25.2
[2022-07-27] MEDS: iohexoL 350 MG/ML 100 ML INFUS..BTL IV (16:15)
[2022-07-27 19:43] VITALS: BP 89/50; PULSE 81; RESP 18; TEMP 37.2; O2SAT 97
[2022-07-27] MEDS: HYDROmorphone HCl 1 MG/ML SYRINGE 0.5 MG IVPUSH (20:41)
[2022-07-27 23:46] VITALS: BP 99/60; PULSE 73; RESP 18; TEMP 36.9; O2SAT 96
[2022-07-28] MEDS: Piperacillin Sodium/Tazobactam 3.375 GM in 0.9 % Sodium Chloride 50 ML IV ×4 (02:45→19:40)
[2022-07-28 07:26] LABS: Creatinine Clr Calc Pharmacy 110.1; Estimated Glomerular Filt Rate > 60
[2022-07-28 07:31] LABS: Vancomycin Trough 10.9 mcg/mL (10.0-20.0)
[2022-07-28 07:46] VITALS: BP 100/52; PULSE 73; RESP 16; TEMP 37.5; O2SAT 95
[2022-07-28] MEDS: amLODIPine Besylate 2.5 MG TABLET PO ×2 (07:54→20:02)
[2022-07-28] MEDS: Gabapentin 300 MG CAPSULE PO ×2 (07:54→20:02)
[2022-07-28] MEDS: Docusate Sodium 100 MG CAPSULE 300 MG PO (07:55)
[2022-07-28] MEDS: Heparin Sodium,Porcine 5,000 UNIT/ML VIAL 5000 UNIT SUBCUT (07:55)
--- NOTE | 2022-07-28 07:56 | HE.PHANOTE ---
RE: vanco Trough on 07/28 came back at 10.9; predicted AUC for 1000mg Q12H was only 397mg/L; increased dose to 1250mg Q12H with predicted AUC 496mg/L, trough of 14.1. Next level to be drawn after 3 doses on 07/29 @1900
[2022-07-28] MEDS: 0.9 % Sodium Chloride Flush 3 ML SYRINGE IVFLUSH ×3 (07:58→19:40)
--- NOTE | 2022-07-28 08:15 | P.CDIM_ITS ---
PROVIDER RESPONSE TEXT: To clarify, the appropriate diagnosis supported by the clinical indicators: Clinically unable to determine (explain): axox3 on admission and subsequent notes QUERY TEXT: PHYSICIAN'S DOCUMENTATION REQUEST Date of Query: 07/27/2022 02:18 PM EST Patient Name: Nik Rodriguez Admit Date: 07/27/2022 Dear Monica Maki, A review of the medical record indicates additional documentation may be needed. Please review below and update the documentation accordingly. Clinical Indicators: Diabetic ulcers to bilateral heels: Per RN shift assessments: Left and right heels unstageable Per ED photos and note: deep ulceration with eschar formation bilateral heel with foul-smelling discharge There was exposed bone and they were concerned for osteomyelitis so patient was sent to the ER for f urther evaluation. Based on the above, could you please provide further information regarding the ulcer/wound: Diabetic ulcer Please specify the extent of the ulcer/wound (exposed fat, muscle involvement/necrosis, bone involvem ent/necrosis) Other Other (explain) Clinically unable to determine (explain) Thank you, Lexy Walter, MS, RN, CCRN Use of terms such as suspected, likely, concern for, or probable (associated with a specific diagnosi s that is being evaluated, monitored, or treated as if it exists) are acceptable and can be coded in the inpatient se tting, when documented at the time of discharge. Please use your independent medical judgment in providing your response. THIS QUERY IS PART OF THE PERMANENT MEDICAL RECORD
[2022-07-28] MEDS: vancomycin HCL 1,250 MG in 0.9 % Sodium Chloride 250 ML 166.67 MG IV ×2 (09:03→20:37)
[2022-07-28] MEDS: Morphine Sulfate ER 30 MG TABLET.ER 60 MG PO ×2 (11:06→22:17)
--- NOTE | 2022-07-28 11:14 | HO.PM.IMPN ---
Subjective Subjective Date of Service: 07/28/22 Interval History: patient denies foot or leg discomfort has chronic bilateral lower extremity neuropathy, no fevers, no chills, no overnight events, stable chronic lower back pain, tolerating diet no nausea, no vomiting, no abdominal pain. , Review of Systems Review of Systems: Yes all other systems are reviewed and are negative Physical Exam Vital Signs: Vital Signs: Last Vital Signs Temp 99.5 F 07/28/22 07:46 Pulse 73 07/28/22 07:46 Resp 16 07/28/22 07:46 BP 100/52 L 07/28/22 07:46 Pulse Ox 95 07/28/22 07:46 O2 Del Method 07/28/22 07:46 BMI result Body Mass Index 25.2 Const: Other: General? awake, al ert x3, resting co mfortably in no ac twyla distress.? Nec k supple no JVD. CVS? regular rate rhythm, Respirator y lungs clear to a uscultation, no re spiratory distress , no wheeze, no rh onchi. Gastrointes tinal abdomen soft , nontender, bowel sounds audible, n o guarding , no ri gidity. Extremitie s? bilateral heel ulcers foul odor, muscle exposed,not down to bone, lef t big toe ulcer u nable to stage ,co seth with eschar right medial knee traumatic ulcer , muscle exposed, no drainage, status post right big toe amputation, mild non pitting edema left leg Neuro non focal , speech reinaldo ar. Skin? right lo wer extremity disc oloration Objective Data Active Medications Acetaminophen (Acetaminophen 325 Mg Tablet) 650 mg PO Q6H PRN PRN Reason: Pain, Mild (Pain Scale 1-3) Acetaminophen/Butalbital/Caffeine (Butalb/Acetamin/Caff 50/325/40 Tablet) 1 tab PO DAILY PRN PRN Reason: headache Amlodipine Besylate (Amlodipine Besylate 2.5 Mg Tablet) 2.5 mg PO BID [facility]; Protocol Last Admin: 07/28/22 07:54 Dose: 2.5 mg Documented By: JUNE Atorvastatin Calcium (Atorvastatin Calcium 80 Mg Tablet) 80 mg PO BEDTIME [facility] Last Admin: 07/27/22 20:35 Dose: 80 mg Documented By: SAM Cyclobenzaprine HCl (Cyclobenzaprine Hcl 10 Mg Tablet) 10 mg PO BID PRN PRN Reason: Back Pain Docusate Sodium (Docusate Sodium 100 Mg Capsule) 300 mg PO DAILY [facility] Last Admin: 07/28/22 07:55 Dose: 300 mg Documented By: JUNE Gabapentin (Gabapentin 300 Mg Capsule) 300 mg PO BID [facility] Last Admin: 07/28/22 07:54 Dose: 300 mg Documented By: JUNE Heparin Sodium (Porcine) (Heparin Sodium,Porcine 5,000 Unit/Ml Vial) 5,000 unit SUBCUT Q8H [facility] Last Admin: 07/28/22 07:55 Dose: 5,000 unit Documented By: JUNE Hydromorphone HCl (Hydromorphone Hcl 1 Mg/Ml Syringe) 0.5 mg IVPUSH Q4H PRN; Protocol PRN Reason: Pain, Severe (Pain Scale 7-10) Last Admin: 07/27/22 20:41 Dose: 0.5 mg Documented By: SAM Piperacillin Sod/Tazobactam (Sod 3.375 gm/ Sodium Chloride) 50 mls @ 100 mls/hr IV Q6H [facility] Last Infusion: 07/28/22 09:58 Dose: 0 mls/hr Documented By: JUNE Vancomycin HCl 1,250 mg/ (Sodium Chloride) 250 mls @ 166.667 mls/hr IV Q12H [facility] Last Infusion: 07/28/22 10:57 Dose: 0 mls/hr Documented By: JUNE Melatonin (Melatonin 3 Mg Tablet) 6 mg PO BEDTIME PRN PRN Reason: Insomnia Morphine Sulfate (Morphine Sulfate Er 30 Mg Tablet.Er) 60 mg PO Q12H [facility] Last Admin: 07/28/22 11:06 Dose: 60 mg Documented By: JUNE Pharmacy Consult (Consult Rx Vancomycin Dosing) 1 each MISCELLANE DAILY PRN PRN Reason: Consult order Pharmacy Consult (Consult Rx Perform Med Rec) 1 each MISCELLANE ONCE PRN PRN Reason: Consult order Senna (Sennosides 8.6 Mg Tablet) 17.2 mg PO BEDTIME PRN PRN Reason: Constipation Sodium Chloride (0.9 % Sodium Chloride Flush 3 Ml Syringe) 3 ml IVFLUSH QSHIFT [facility] Last Admin: 07/28/22 07:58 Dose: 3 ml Documented By: JUNE Trazodone HCl (Trazodone Hcl 100 Mg Tablet) 100 mg PO BEDTIME [facility] Last Admin: 07/27/22 20:42 Dose: Not Given Documented By: SAM Non-Admin Reason: Patient Refused Labs 07/27/22 05:47 07/28/22 06:52 Labs: Laboratory Results - last 24 hr 07/28/22 07/28/22 06:52 06:52 Estim Creat Clear Calc 110.1 Estimated GFR > 60 Vancomycin Trough 10.9 Microbiology Microbiology Results: Microbiology 07/26/22 15:35 Blood Culture - Preliminary Blood - Venous No growth after 24 hours. 07/26/22 15:51 Blood Culture - Preliminary Blood - Venous No growth after 24 hours. Assessment and Plan (1) Osteomyelitis of great toe of left foot: Status: Acute (2) Nonhealing ulcer of heel: Status: Acute Plan 61M with hx HTN, chronic low back pain, peripheral neuropathy, LEft great toe amputation; b/l Heel ulcer with eschar for 2 months ; non healing toe ulcer; has been having regular dressing and follows wound clinic p/w b/l Heel ulcers with foul smell; pt went to wound clinic and was sen to ER for further eval given concerns for oisteomyelitis. b/l Heel Ulcers/L big Toe ulcer:?suspected Osteomyelitis. on IV Vanc and Zosyn day 2. blood cultures x2 neg ,afebrile nl wbc. ESR 86/CRP elevated x-ray of foot concerning for osteomyelitis of distal phalanx of left great toe, X rays bilateral calcaneus showed?Soft tissue ulceration at the posterior heel. There is no radiographic evidence for osteomyelitis Unable to do MRI as pt. has Brain aneurysm s/p Clip. ( pt reports that he was told not to go near magnetic [place]) CT of b/l Foot no findings of osteomyelitis or abscess of heels id agrees with current antibiotic Dr. Cid saw patient ordered duplex scan wound care nurse consult for daily dressing to both heels, and left big toe traumatic right medial knee ulcer with muscle exposed, not down to bone seen by Dr. Cid, follow he recommend continue Wound Clinic follow-up as outpatient chronic back pain continue MS Contin home dose for pain control. Hx HTN/HLD: c/w home Amliodipine and statin.? aspirin held for possible procedure Hx: neuropathy: Gabapentin 300 b.i.d.. normocytic anemia chronic no active bleed noted follow CBC DVT ppx: SQ Heparin Full code patient need continued inpatient hospitalization for IV antibiotics and further workup for peripheral arterial disease Time Spent With Patient Time: Total time managing care of this patient today ____ minutes. Quality Stroke Does the patient have a stroke diagnosis?: No VTE Prior VTE?: No VTE Risk Level:: Medical - moderate - high VTE Device Contraindication: Treatment Not Indicated VTE Drug Contraindication: N/A - Med Ordered
--- NOTE | 2022-07-28 11:27 | P.CDIM_ITS ---
PROVIDER RESPONSE TEXT: To clarify, the appropriate diagnosis supported by the clinical indicators: Other (explain): traumatic ulcer QUERY TEXT: PHYSICIAN'S DOCUMENTATION REQUEST Date of Query: 07/27/2022 02:25 PM EST Patient Name: Nik Rodriguez Admit Date: 07/27/2022 Dear Monica Maki, A review of the medical record indicates additional documentation may be needed. Please review below and update the documentation accordingly. Clinical Indicators: Pressure injury to left knee: Per special education director assessments: Stage III Per provider progress note on 07/27: right medial knee ulcer Based on the above, could you please provide further information/specificity regarding the ulcer/woun d: Pressure (decubitus) ulcer Please include the stage of the ulcer Other Other (explain) Clinically unable to determine (explain) Thank you, Lexy Walter MS, RN, CCRN Use of terms such as suspected, likely, concern for, or probable (associated with a specific diagnosi s that is being evaluated, monitored, or treated as if it exists) are acceptable and can be coded in the inpatient se tting, when documented at the time of discharge. Please use your independent medical judgment in providing your response. THIS QUERY IS PART OF THE PERMANENT MEDICAL RECORD
--- NOTE | 2022-07-28 12:02 | PM.CNGS ---
History of Present Illness Consult details Consult date: 07/28/22 Reason for consult: wound care Narrative: Very complex 62-year-old gentleman with a history of neuropathy and nonhealing ulcers presents to us for vascular evaluation. [facility] and subsequently sent into the hospital for evaluation and treatment. He reports that he has been feeling better since admission. He is concerned about his overall status of his foot. He has undergone noninvasive arterial testing and now presents to us for follow-up. Review of Systems Review of Systems: Yes all other systems are reviewed and are negative Constitutional: Constitutional: Reports no additional constitutional complaints ENT: Reports Normal hearing present Cardiovascular: Cardiovascular: Denies chest pain, Denies chest pain at rest, Denies chest pain with activity and Denies pedal edema Respiratory: Respiratory: Denies cough Gastrointestinal: Gastrointestinal: Denies abdominal pain Musculoskeletal: Musculoskeletal: Denies abnormal gait, Denies muscle cramps and Denies radiating pain into limb Integumentary/Breasts: Skin/Breast: Denies skin ulcer and Denies wounds Neurologic: Reports Normal hearing present and Denies abnormal gait Psychiatric: Psychiatric: Reports no additional psychiatric complaints PMFSH Past Medical History Medical History Amputated toe of right foot Brain aneurysm Hypertension Surgical History Surgical History History of cholecystectomy Hx of CABG Social History Social History Household Members: Children Housing: Apartment Do you presently have visiting nurse or other home services: Yes (wound nurse 2X week) Alcohol intake: never Patient Tobacco Use Status: Current everyday Tobacco user Tobacco use type: Cigarette Cigarettes Per Day: 6 Years Smoked: 40 Smoked in Last 30 Days: Yes Patient Interested in Nicotine Replacement: No Use of substances other than those prescribed or required for medical reasons: No Currently Displaying Signs/Symptoms of Drug Intoxication Withdrawal: No Have you been hit, kicked, punched, or otherwise hurt by someone within the past year? If so, by whom?: No Do you feel safe in your current relationship?: No Current Relationship Is there a partner from a previous relationship who is making you feel unsafe now?: No Are you made to feel afraid or neglected: No Advance Directives: No Advance Directives Information Provided: No Do you have thoughts of harming others: None Do you have a plan to hurt others: No Plan Recently lost weight without trying: No How much weight loss: Not applicable Eating poorly because of decreased appetite: No Nutrition screen score: 0 service: No Current occupational status: disabled Meds Allergies Allergy/AdvReac Type Severity Reaction Status Date / Time No Known Allergies Allergy Verified 07/26/22 13:32 Active Medications: Current Medications Acetaminophen (Acetaminophen 325 Mg Tablet) 650 mg PO Q6H PRN PRN Reason: Pain, Mild (Pain Scale 1-3) Acetaminophen/Butalbital/Caffeine (Butalb/Acetamin/Caff 50/325/40 Tablet) 1 tab PO DAILY PRN PRN Reason: headache Amlodipine Besylate (Amlodipine Besylate 2.5 Mg Tablet) 2.5 mg PO BID [facility]; Protocol Last Admin: 07/28/22 07:54 Dose: 2.5 mg Atorvastatin Calcium (Atorvastatin Calcium 80 Mg Tablet) 80 mg PO BEDTIME [facility] Last Admin: 07/27/22 20:35 Dose: 80 mg Cyclobenzaprine HCl (Cyclobenzaprine Hcl 10 Mg Tablet) 10 mg PO BID PRN PRN Reason: Back Pain Docusate Sodium (Docusate Sodium 100 Mg Capsule) 300 mg PO DAILY [facility] Last Admin: 07/28/22 07:55 Dose: 300 mg Gabapentin (Gabapentin 300 Mg Capsule) 300 mg PO BID [facility] Last Admin: 07/28/22 07:54 Dose: 300 mg Heparin Sodium (Porcine) (Heparin Sodium,Porcine 5,000 Unit/Ml Vial) 5,000 unit SUBCUT Q8H [facility] Last Admin: 07/28/22 07:55 Dose: 5,000 unit Hydromorphone HCl (Hydromorphone Hcl 1 Mg/Ml Syringe) 0.5 mg IVPUSH Q4H PRN; Protocol PRN Reason: Pain, Severe (Pain Scale 7-10) Last Admin: 07/27/22 20:41 Dose: 0.5 mg Piperacillin Sod/Tazobactam (Sod 3.375 gm/ Sodium Chloride) 50 mls @ 100 mls/hr IV Q6H [facility] Last Infusion: 07/28/22 09:58 Dose: Infused Vancomycin HCl 1,250 mg/ (Sodium Chloride) 250 mls @ 166.667 mls/hr IV Q12H [facility] Last Infusion: 07/28/22 10:57 Dose: Infused Melatonin (Melatonin 3 Mg Tablet) 6 mg PO BEDTIME PRN PRN Reason: Insomnia Morphine Sulfate (Morphine Sulfate Er 30 Mg Tablet.Er) 60 mg PO Q12H [facility] Last Admin: 07/28/22 11:06 Dose: 60 mg Pharmacy Consult (Consult Rx Vancomycin Dosing) 1 each MISCELLANE DAILY PRN PRN Reason: Consult order Pharmacy Consult (Consult Rx Perform Med Rec) 1 each MISCELLANE ONCE PRN PRN Reason: Consult order Senna (Sennosides 8.6 Mg Tablet) 17.2 mg PO BEDTIME PRN PRN Reason: Constipation Sodium Chloride (0.9 % Sodium Chloride Flush 3 Ml Syringe) 3 ml IVFLUSH QSHIFT [facility] Last Admin: 07/28/22 07:58 Dose: 3 ml Trazodone HCl (Trazodone Hcl 100 Mg Tablet) 100 mg PO BEDTIME [facility] Last Admin: 07/27/22 20:42 Dose: Not Given Home Medications Medication Instructions Recorded Confirmed Last Taken Type amlodipine 2.5 mg tablet 2.5 mg PO BID 07/26/22 07/26/22 07/26/22 History aspirin 81 mg chewable tablet 81 mg PO DAILY 07/26/22 07/26/22 07/26/22 History atorvastatin 80 mg tablet 80 mg PO BEDTIME 07/26/22 07/26/22 Unknown History [id number] 1 tab PO DAILY PRN headache 07/26/22 07/26/22 07/26/22 History 50 mg-325 mg-40 mg tablet cyclobenzaprine 10 mg tablet 1 tab PO BID PRN Back Pain 07/26/22 07/26/22 07/26/22 History docusate sodium 100 mg capsule 300 mg PO DAILY 07/26/22 07/26/22 07/26/22 History (Colace) gabapentin 300 mg capsule 1 cap PO BID 07/26/22 07/26/22 07/26/22 History morphine 60 mg tablet,extended 60 mg PO Q12H 07/26/22 07/26/22 07/26/22 History release trazodone 100 mg tablet 100 mg PO BEDTIME 07/26/22 07/26/22 Unknown History Physical Exam Vital Signs: Vital Signs: Last Vital Signs Temp 99.5 F 07/28/22 07:46 Pulse 73 07/28/22 07:46 Resp 16 07/28/22 07:46 BP 100/52 L 07/28/22 07:46 Pulse Ox 95 07/28/22 07:46 O2 Del Method 07/28/22 07:46 BMI result Body Mass Index 25.2 Const: General: cooperative, healthy appearing and comfortable Orientation/consciousness: oriented to person, oriented to place and oriented to time HEENT: Head: Yes normal to inspection Neck: Neck: Yes normal visual inspection Carotids: no bruits Chest: Chest palpation & inspection: normal inspection of the chest Resp: Effort & Inspection: normal respiratory effort and able to speak in complete sentences Auscultation: clear to auscultation bilaterally, no crackles, no rales, no rhonchi and no wheezes Cardio: Rate: regular rate Rhythm: regular rhythm Heart sounds: S1 normal heart sound present and S2 normal heart sound present Bruits: no carotid bruits Peripheral pulses: Peripheral pulses 2+ throughout GI: Inspection: Yes normal to inspection Skin: Other: Bilateral heel pressure ulcerations clean approximately 8 cm in diameter. Left great toe dark in ulcer with covering eschar unclear level of penetration. Right medial knee ulcer penetrating to muscle. Wounds: no wounds Hair: normal Neuro: General: oriented to person, oriented to place and oriented to time Cranial nerves: Yes CN's II-XII intact bilaterally and Yes Normal hearing present Cognition (Neuro): normal cognition Motor exam (neuro): 5/5 motor strength present throughout Extrem: Other: venous exam: No significant superficial varicosities or spider telangiectasias, minimal edema General: No clubbing, No cyanosis and No edema Psych: Appearance: grossly normal Mental Status: mental status grossly normal Speech and movement: Normal speech and movement present Results Labs 07/27/22 05:47 07/28/22 06:52 Labs: BMP 07/28/22 06:52 Creatinine 0.65 Urine 07/26/22 Range/Units 15:58 Urine Color Yellow Urine Appearance Clear Urine pH 6.5 (5.0-9.0) Ur Specific [place] 1.015 (1.005-1.025) Urine Protein Trace (Neg-Trace) mg/dL Urine Glucose (UA) Negative (Negative) mg/dL All other labs normal. Imaging Additional studies: Noninvasive arterial testing on official results demonstrates STEVIE on the right of 1.08 and on the left of 1.27 on the left there is concern of distal SFA disease. Written report and images were reviewed. Assessment and Plan (1) Osteomyelitis of great toe of left foot: Status: Acute In short patient has bilateral lower extremity ulcers. The concern is his left great toe. There is underlying osteomyelitis. In addition the left side there is arterial insufficiency concern of disease in the distal SFA. This will need to be treated prior to any amputation. (2) Nonhealing ulcer of heel: Status: Acute Plan Discussed offloading as much as possible. Wounds are relatively clean. Local wound care for now. Time Spent With Patient Time: Total time managing care of this patient today ____ minutes. Procedures Date of Service Date of Service: 07/28/22
--- NOTE | 2022-07-28 12:07 | MHC.CM.PN ---
EMR REVIEWED PER MD ROUNDS, PT IS NOT MEDICALLY CLEARED FOR DC (IV ABT, WORK-UP FOR PAD) CM WILL CONTINUE TO FOLLOW.
[2022-07-28 15:09] VITALS: BP 90/62; PULSE 81; RESP 18; TEMP 37.1; O2SAT 97
[2022-07-28 19:43] VITALS: BP 115/63; PULSE 77; RESP 18; TEMP 36.6; O2SAT 93
[2022-07-28] MEDS: Atorvastatin Calcium 80 MG TABLET PO (20:02)
[2022-07-28] MEDS: traZODone HCL 100 MG TABLET PO (20:02)
[2022-07-28 23:41] VITALS: BP 110/62; PULSE 74; RESP 18; TEMP 36.6; O2SAT 98
[2022-07-29 03:09] VITALS: BP 115/59; PULSE 80; RESP 17; TEMP 37.1; O2SAT 97
[2022-07-29] MEDS: Piperacillin Sodium/Tazobactam 3.375 GM in 0.9 % Sodium Chloride 50 ML IV ×3 (03:27→13:33)
[2022-07-29 05:48] LABS: Hematocrit 24.7 % (42.0-52.0); Hemoglobin 7.8 g/dl (14.0-18.0); Mean Corpuscular HGB Conc 31.6 g/dl (31.0-36.0); Mean Corpuscular Hemoglobin 27.4 pg (27.0-33.0); Mean Corpuscular Volume 86.7 fL (80.0-98.0); Mean Platelet Volume 9.2 fL (9.4-12.4); Platelet Count 216 X10*3/uL (160-400); Red Blood Count 2.85 X10*6/uL (4.60-5.80); Red Cell Distribution Width 15.5 % (11.0-16.0); White Blood Count 3.2 X10*3/uL (4.8-10.8)
[2022-07-29 06:22] LABS: Creatinine Clr Calc Pharmacy 113.6; Estimated Glomerular Filt Rate > 60
[2022-07-29 08:00] VITALS: BP 99/60; PULSE 73; RESP 18; TEMP 36.7; O2SAT 97
[2022-07-29] MEDS: 0.9 % Sodium Chloride Flush 3 ML SYRINGE IVFLUSH ×2 (08:30→16:04)
[2022-07-29] MEDS: Gabapentin 300 MG CAPSULE PO (08:30)
[2022-07-29] MEDS: Docusate Sodium 100 MG CAPSULE 300 MG PO (08:35)
[2022-07-29] MEDS: HYDROmorphone HCl 1 MG/ML SYRINGE 0.5 MG IVPUSH ×2 (09:01→16:17)
[2022-07-29] MEDS: vancomycin HCL 1,250 MG in 0.9 % Sodium Chloride 250 ML 166.67 MG IV (09:49)
--- NOTE | 2022-07-29 10:54 | MHC.CLN ---
F/U DIET=2 GRAM SODIUM. INTAKE APPEARS TO BE GOOD. WOUNDS PRESENT. PATIENT DOES NOT WANT SUPPLEMENT. FOLLOW FOR INTAKE AND WOUND HEALING.
[2022-07-29] MEDS: Morphine Sulfate ER 30 MG TABLET.ER 60 MG PO (11:23)
--- NOTE | 2022-07-29 13:24 | HO.VASCPN ---
Subjective Subjective Date of Service: 07/29/22 Patient reports: no new complaints Interval history: Patient seen and examined. No significant events overnight. Results of arterial testing have been posted. He reports no other significant discomfort. He is now for routine follow-up. Physical Exam Vital Signs: Vital Signs: Last Vital Signs Temp 98.0 F 07/29/22 08:00 Pulse 73 07/29/22 08:00 Resp 18 07/29/22 08:00 BP 99/60 07/29/22 08:00 Pulse Ox 97 07/29/22 08:00 O2 Del Method 07/29/22 03:09 BMI result Body Mass Index 25.2 Const: General: cooperative, healthy appearing and no acute distress Orientation/consciousness: oriented to person, oriented to place and oriented to time HEENT: Head: Yes normal to inspection Neck: Carotids: no bruits Chest: Chest palpation & inspection: normal inspection of the chest Resp: Effort & Inspection: normal respiratory effort and able to speak in complete sentences Auscultation: clear to auscultation bilaterally Cardio: Rate: regular rate Heart sounds: S1 normal heart sound present and S2 normal heart sound present GI: Inspection: Yes normal to inspection Skin: Other: Bilateral heel ulcers. Necrotic left great toe with overlying dry eschar General skin exam: no rashes or lesions noted Wounds: no wounds Neuro: General: oriented to person, oriented to place, oriented to time and CN's II-XI intact bilaterally Extrem: General: Yes normal to inspection, Yes full ROM and Yes no clubbing, cyanosis or edema Psych: Appearance: grossly normal and well kempt Speech and movement: Normal speech and movement present Affect: normal affect Progress Note: A&P Assessment and plan (1) PAD (peripheral artery disease): Status: Acute Assessment and Plan: In short patient has an element of peripheral vascular disease. His noninvasive testing demonstrates an STEVIE of 1.31 but there is distal SFA disease. He will most likely require great toe amp as he does have underlying osteomyelitis as noted on CT scan. Prior to any amputation he will need revascularization. Unfortunately I will be away for the next 2 weeks and will need transfer to a tertiary care center. Should that not be possible it has been a few weeks since this began he may need discharged on IV antibiotics and workup as an outpatient. Ideally this should be transferred to a tertiary care center but due to the current environment transfer may not be possible and we will have to work him up as an outpatient. Thank you for allowing us to assist in his care. If there are any questions or concerns please do not hesitate to contact us Time Spent With Patient Time: Total time managing care of this patient today ____ minutes. Procedures Date of Service Date of Service: 07/29/22 Quality Stroke Does the patient have a stroke diagnosis?: No VTE Prior VTE?: No VTE Risk Level:: Medical - moderate - high VTE Device Contraindication: Treatment Not Indicated VTE Drug Contraindication: N/A - Med Ordered
--- NOTE | 2022-07-29 13:55 | P.DS_ITS ---
DS: Providers Provider Date of Service: 07/29/22 Date of admission: 07/26/22 22:10 Date of discharge: 07/29/22 Primary care physician: Niyah Mora NP Consults: 07/26/22 22:08 Consult to Infectious Diseases Routine Consulting Provider: Nubia Miller Reason for consultation: Ulcers b.l foot; ?osteo Has provider been notified: No Consult to Vascular Surgery Routine Consulting Provider: [facility] Reason for consultation: foot ulcer with eschar; ?osteo Attending physician on discharge: Nilay Porter Discharging clinician: Albertina Sellers DS: Diagnosis Discharge Diagnosis (1) PAD (peripheral artery disease): Status: Acute (2) Osteomyelitis of great toe of left foot: Status: Acute (3) Nonhealing ulcer of heel: Status: Acute DS: Summary Hospital Course Hospital Course: From H&P on day of admission 61M with hx HTN, chronic low back pain, peripheral neuropathy, LEft great toe amputation; b/l Heel ulcer with eschar for 2 months ; non healing toe ulcer; has been having regular dressing and follows wound clinic p/w b/l Heel ulcers with foul smell; pt went to wound clinic and was sen to ER for further eval. pt denies fevers; reports mild increased foul smell; no discharge; reports he has seen vascular surgeon in the past; denies being on antibiotics recently. denies any chest pain, SOB, palpitations. ER course: pt ER physician pt noted to have foul smelling heel ulcers and toe ulcer; no discharge; mentioned Wound clinic team did partial debridement; noted Bone; concerned for osteomyelitis. Given abx; admitted for further management. b/l Heel Ulcers/L big Toe ulcer:? admitted 07/26 for management of above wounds. CT of bilateral feet done and reports below and uploaded to cloud/disc. CT scan showing osteomyelitis of the left great toe. Patient unable to have MRI due to history of brain aneurysm s/p clip placement. He was started on IV Vancomycin and Zosyn. blood cultures negative at 48 hours. Patient has remained afebrile, no evidence of sepsis. ESR 86/CRP 7.13. Patient was seen in consultation by vascular surgery and noninvasive arterial studies were obtained showing scattered areas of mild to moderate stenosis throughout the left lower extremity, particularly in the SFA. Revascularization of the left lower extremity was recommended however no vascular surgery coverage is available over the next 2 weeks. Specialist recommended transfer to outside hospital for revascularization of the left lower extremity in attempt to salvage the left great toe and further care of left great toe osteomyelitis. traumatic right medial knee ulcer - not down to bone. Recommend outpatient follow up in wound care clinic chronic back pain? continue MS Contin home dose for pain control. HTN. blood pressure soft, Norvasc stopped Hx: neuropathy: Gabapentin 300 b.i.d.. normocytic? anemia -no active bleeding noted. H/H has remained stable. Time Spent with Patient Time attestation: Total time managing care of this patient today ____ minutes. Discharge coordination time: Greater than 30 minutes Quality: Safe Use of Opioids Does Pt have an Active Cancer Diagnosis on the Problem List?: No Quality: Stroke Does the patient have a stroke diagnosis?: No Physical Exam Vital Signs: Vital Signs: Last Vital Signs Temp 98.0 F 07/29/22 08:00 Pulse 73 07/29/22 08:00 Resp 18 07/29/22 08:00 BP 99/60 07/29/22 08:00 Pulse Ox 97 07/29/22 08:00 O2 Del Method 07/29/22 03:09 BMI result Body Mass Index 25.2 Const: General: cooperative, comfortable, alert and awake Nutritional Appearance: average body habitus Orientation/consciousness: patient oriented x3 Resp: Effort & Inspection: normal respiratory effort and able to speak in complete sentences Auscultation: clear to auscultation bilaterally Cardio: Rate: regular rate Heart sounds: S1 normal heart sound present and S2 normal heart sound present GI: Inspection: No distended Skin: Other: left great toe left heel right heel Neuro: General: patient oriented x3 and CN's II-XI intact bilaterally Extrem: Other: right lower leg chronic venous stasis changes right knee wound covered in c/d/i dressing DS: Data Data Completed and Pending Labs on day of discharge: Laboratory Results - last 24 hr 07/29/22 07/29/22 05:09 05:09 WBC 3.2 L RBC 2.85 L Hgb 7.8 L Hct 24.7 L MCV 86.7 MCH 27.4 MCHC 31.6 RDW 15.5 Plt Count 216 MPV 9.2 L Absolute Nucleated RBC 0.000 Nucleated RBC % (auto) 0.0 Creatinine 0.63 Estim Creat Clear Calc 113.6 Estimated GFR > 60 Preliminary micro results at discharge 07/26/22 15:35 Blood Culture - Preliminary Blood - Venous No growth after 48 hours. 07/26/22 15:51 Blood Culture - Preliminary Blood - Venous No growth after 48 hours. Imaging Venous US: Radiologist's impression: ITS Impressions Calcaneus X-Ray 07/26/22 14:05 IMPRESSION: Soft tissue ulceration at the posterior heel. There is no radiographic evidence for osteomyelitis. MRI would be more sensitive for detection of osteomyelitis. Calcaneus X-Ray 07/26/22 14:05 IMPRESSION: 1. Skin ulcer at the posterior heel. No radiographic evidence for osteomyelitis. MRI would be more sensitive for detection of osteomyelitis. 2. Status post amputation of fifth metatarsal. Toe X-Ray 07/26/22 14:05 IMPRESSION: 1. Irregularity of the skin at the distal medial side of the great toe suggesting ulceration. 2. Loss of definition of the distal tuft of the distal phalanx of the great toe concerning for osteomyelitis. MRI would be helpful for further evaluation. 3. Loss of bone of the distal phalange of the second and third toe. Clinically correlate. Abd US [id number] 07/27/22 15:07 IMPRESSION: RIGHT LEG: Scattered areas of mild stenosis throughout the right lower extremity. Abnormal ankle PVR. LEFT LEG: Scattered areas of mild-moderate stenosis throughout the left lower extremity, particularly in the SFA. Abnormal ankle PVR. Duplex Scan Lower Extremity Artery 07/27/22 15:07 IMPRESSION: RIGHT LEG: Scattered areas of mild stenosis throughout the right lower extremity. Abnormal ankle PVR. LEFT LEG: Scattered areas of mild-moderate stenosis throughout the left lower extremity, particularly in the SFA. Abnormal ankle PVR. Foot CT 07/27/22 16:11 IMPRESSION: 1. Posterior skin wounds overlying the bilateral calcaneal tuberosities with s concerning soft tissue inflammation. No appreciable findings of underlying osteomyelitis or abscess. 2. A small 1.4 cm abscess in the distal margin of the second toe distal phalanx with underlying cortical osteolysis at the distal phalangeal tuft, consistent with osteomyelitis. 3. Dorsal ulcer at the great toe IP joint with erosion at the dorsal aspect of the great toe proximal phalangeal head, most consistent with osteomyelitis. There is associated disruption of the IP joint capsule with plantar and valgus subluxation of the distal phalanx. 4. Diffuse soft tissue swelling and subcutaneous edema in the left foot. No abscess. Foot CT 07/27/22 16:12 IMPRESSION: 1. Posterior skin wounds overlying the bilateral calcaneal tuberosities with s concerning soft tissue inflammation. No appreciable findings of underlying osteomyelitis or abscess. 2. A small 1.4 cm abscess in the distal margin of the second toe distal phalanx with underlying cortical osteolysis at the distal phalangeal tuft, consistent with osteomyelitis. 3. Dorsal ulcer at the great toe IP joint with erosion at the dorsal aspect of the great toe proximal phalangeal head, most consistent with osteomyelitis. There is associated disruption of the IP joint capsule with plantar and valgus subluxation of the distal phalanx. 4. Diffuse soft tissue swelling and subcutaneous edema in the left foot. No abscess. Discharge Plan Discharge Anticipated Discharge Date/Time: 07/29/22 13:54 Patient Disposition: [facility] Discharge Diagnosis: osteomyelitis left great toe PVD b/l heel ulcers Referrals: Niyah Mora NP [Primary Care Provider] - 1 Week Discharge Medications: Continued cyclobenzaprine 10 mg tablet 1 tab PO BID PRN (Reason: Back Pain) atorvastatin 80 mg tablet 80 mg PO BEDTIME trazodone 100 mg tablet 100 mg PO BEDTIME morphine 60 mg tablet extended release 60 mg PO Q12H gabapentin 300 mg capsule 1 cap PO BID [id number] 50-325-40 mg tablet 1 tab PO DAILY PRN (Reason: headache) docusate sodium [Colace] 100 mg Capsule 300 mg PO DAILY aspirin 81 mg Tablet,Chewable 81 mg PO DAILY Discontinued amlodipine 2.5 mg tablet 2.5 mg PO BID Discharge Orders: Discharge Order (Routine); Ordered 07/29/22 Ordered By: Albertina Sellers Activity on Discharge: As tolerated Stand Alone Forms: Patient Portal Discharge page Care Plan Goals: Healing of wounds, intervention for left leg Health Concerns: Peripheral vascular disease Left great toe osteomyelitis Non healing b/l heel wounds Anemia Plan of Treatment: currently receiving zosyn 3.375 q6h and vancomycin 1250 q12h for treatment of left great toe osteomyelitis and non-healing heel wounds norvasc was discontinued due to soft blood pressure transfer to [facility] for peripheral vascular disease and possible need for revascularization of the left leg Assessment: see above Discharge Date/Time: 07/29/22 18:33
--- NOTE | 2022-07-29 14:31 | MHC.CM.PN ---
DP: PT WILL TRANSFER TO [facility] FOR TX OF PVD/POSSIBLE REVASCULARIZATION OF LEFT LEG.
[2022-07-29 15:32] VITALS: BP 103/56; PULSE 88; RESP 20; TEMP 37.1; O2SAT 96
[2022-07-29] MEDS: Heparin Sodium,Porcine 5,000 UNIT/ML VIAL 5000 UNIT SUBCUT (16:04)
[2022-07-29] MEDS: Acetaminophen 325 MG TABLET 650 MG PO (16:17)
== END 2022-07-29 18:33 | disposition short-term general hospital (02) | DRG 540 ==
LOC: HO.ED 19:17 → HO.EDOVER 22:20 → HO.IMC 23:54
PROVIDERS: Hospitalist; Physician Assistant; Admitting Provider Hospitalist; Emergency Provider Internal Medicine; PCP Nurse Practitioner; Visit Provider Physician Assistant Medical
DX: M86.9 Osteomyelitis, unspecified (principal); L97.419 Non-pressure chronic ulcer of right heel and midfoot with unspecified severity; L97.819 Non-pressure chronic ulcer of other part of right lower leg with unspecified severity; L97.429 Non-pressure chronic ulcer of left heel and midfoot with unspecified severity; I73.9 Peripheral vascular disease, unspecified; I10 Essential (primary) hypertension; F17.210 Nicotine dependence, cigarettes, uncomplicated; Z71.6 Tobacco abuse counseling; M54.59 Other low back pain; G62.9 Polyneuropathy, unspecified; E78.5 Hyperlipidemia, unspecified; L97.529 Non-pressure chronic ulcer of other part of left foot with unspecified severity; I25.10 Atherosclerotic heart disease of native coronary artery without angina pectoris; G89.29 Other chronic pain; Z20.822 Contact with and (suspected) exposure to COVID-19; Z95.1 Presence of aortocoronary bypass graft; Z79.82 Long term (current) use of aspirin; Z79.899 Other long term (current) drug therapy
CPT/HCPCS: 11042; 11044; 11045; 36415; 73650; 73660; 73701; 80048; 80076; 80202; 81003; 82565; 83605; 83735; 85025; 85027; 85652; 86140; 87040; 87070; 87077; 87147; 87186; 87205; 87635; 93923; 93925; 99284; J1170; J1643; J2543; J3370; J3371; Q9967

== ENCOUNTER 2023-06-02 12:46 | Outpatient (RCR) | payer MEDICARE, MEDICAID, SELFPAY ==
--- NOTE | ~2023-06-02 | XR_ITS ---
EXAMINATION: XR TIBIA AND FIBULA, LEFT CLINICAL INFORMATION: Left renal the amputation, concern for osteomyelitis COMPARISON: None available. TECHNIQUE: AP and lateral views of the left tibia and fibula were obtained. FINDINGS: BONES: Status post left below-knee amputation with proximal left tibia and fibula stump in place. There is no focal bone destruction or periosteal reaction seen. JOINTS: Alignment of joints is normal. SOFT TISSUE: Soft tissue is normal, wrapping around the amputated stump of tibia and fibula. Surgical clips are seen in medial posterior left knee. No radiopaque foreign body or abnormal air collection is seen. XR/XR tibia fibula LT 2V IMPRESSION: 1. Bilateral knee amputation at proximal left tibia and fibula shaft is seen. 2. No fracture or dislocation or signs of osteomyelitis are found.
== END 2023-11-09 15:53 | disposition home or self-care (01) ==
LOC: HO.WCC 12:46
PROVIDERS: PCP Nurse Practitioner; Visit Provider Surgery
DX: I87.312 Chronic venous hypertension (idiopathic) with ulcer of left lower extremity (principal); L97.822 Non-pressure chronic ulcer of other part of left lower leg with fat layer exposed; T87.89 Other complications of amputation stump; I73.9 Peripheral vascular disease, unspecified; G62.9 Polyneuropathy, unspecified; I25.2 Old myocardial infarction; F17.210 Nicotine dependence, cigarettes, uncomplicated; Z89.512 Acquired absence of left leg below knee; Z89.511 Acquired absence of right leg below knee; Z79.891 Long term (current) use of opiate analgesic; Z79.899 Other long term (current) drug therapy
CPT/HCPCS: 11042; 15271; 73590; 99212; 99213; Q4187

== ENCOUNTER 2025-04-17 14:28 | Outpatient (AMB) | payer OTHER, SELFPAY ==
--- NOTE | 2025-04-17 14:21 | A.OFFVIS_ITS ---
Vital Signs 3 04/17/25 14:37 Pulse 87 Pulse Source Pulse Oximeter Temp 98.1 F Temp Source Oral Pulse Oximetry (%) 97 Oxygen Delivery Method Room Air Intake Visit Reasons: Wound Care Reff / Ostemylitis Allergies No Known Allergies Allergy (Verified 04/17/25 14:38) HPI HPI Wound Care Reff / Ostemylitis: Details: He presents from [facility] from [facility] for evaluation nonhealing wounds and OM left knee. The wait for Infectious Disease at [facility] is June 2025. He has nonhealing wound left great toe and heel wound in 2022. 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 He now has nonhealing wounds left knee positive bone scan there OM. He has had prior stump abscesses and has not been able to use prosthetics for 2 years (he uses wheelchair) He has been on multiple po antibiotics but denies penitentiary IV antibiotics. Prior organisms ulcer 2022 include Group B strep,MSSA and pasteurella multocida. 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 [facility] Medical History (Updated 04/18/25 @ 22:32 by Nubia Miller MD) Osteomyelitis of left knee region Brain aneurysm Amputated toe of right foot Hypertension Surgical History History of cholecystectomy Hx of CABG Social History Household Members: Children Housing: Apartment Do you presently have visiting nurse or other home services: Yes (wound nurse 2X week) Alcohol intake: never Patient Tobacco Use Status: Current everyday Tobacco user Tobacco use type: Cigarette Cigarettes Per Day: 6 Years Smoked: 40 service: No Current occupational status: disabled Review of Systems Const All systems reviewed & are unremarkable except as noted in HPI and below Physical Exam Vital Signs: Last Vital Signs Temp 98.1 F 04/17/25 14:37 Pulse 87 04/17/25 14:37 Pulse Ox 97 04/17/25 14:37 Oxygen Delivery Method Room Air 04/17/25 14:37 Const Other: General: cooperative Orientation/consciousness: patient oriented x3 HEENT Head: Yes normal to inspection Mouth: Normal oral and palatal mucosa present Eyes General: appearance normal, both eyes and all related structures Pupils: Equal, round and reactive pupils present Resp Effort & Inspection: normal respiratory effort Cardio Rate: regular rate Rhythm: regular rhythm GI Palpation (GI): Soft to palpation and nontender General: Yes no CVA tenderness Back/Spine/Pelvis Back: no CVA tenderness Skin General skin exam: no rashes or lesions noted Neuro General: patient oriented x3 Cranial nerves: Yes CN's II-XII intact bilaterally and Yes Equal, round and reactive pupils present Extrem General: Yes normal to inspection Psych Appearance: grossly normal Assessment & Plan Assessment & Plan (1) Osteomyelitis of left knee region: Comment: He has stump as well as left knee OM nonhealing wounds Code(s): M86.9 - Osteomyelitis, unspecified Category: Medical Plan: He realizes this is not curable with antibiotics. At this time he prefers definitive left AKA, He will call us if he wants to try suppressive antibiotics like Daptomycin for six weeks. Coding Level of Care Code New Pt Level 3 (25477) Diagnoses Osteomyelitis of left knee region M86.9
[2025-04-17 14:37] VITALS: PULSE 87; TEMP 36.7; O2SAT 97
--- OUTSIDE RECORDS SUMMARY | 2025-04-17 17:18 | XMS_ITS | Clinical Summary ---
Author Organization [facility] Address [address] [place] [address] Care Team Providers Care Hospice Care Sales Consultant Name Role Phone Niyah Pepper NP Primary Care Provider [phone] Allergies No known active allergies Medications Medication Sig Dispensed Refills Start Date End Date Status acetaminophen (TYLENOL) 325 MG tablet Take 2 tablets (650 mg total) by mouth every 6 (six) hours. 100 tablet 0 08/31/2022 Active aspirin 81 MG chewable tablet Chew 1 tablet (81 mg total) by mouth daily. 30 tablet 1 09/01/2022 Active atorvastatin (LIPITOR) tablet 80 mg Take 1 tablet (80 mg total) by mouth every evening. 30 tablet 1 09/01/2022 Active ferrous sulfate 325 (65 FE) MG tablet Take 1 tablet (325 mg total) by mouth every morning with breakfast. 30 tablet 1 09/01/2022 Active gabapentin (NEURONTIN) 300 MG capsule Take 2 capsules (600 mg total) by mouth 2 (two) times a day. 90 capsule 1 09/01/2022 Active methocarbamol (ROBAXIN) 750 MG tablet Take 1 tablet (750 mg total) by mouth 3 (three) times a day. 180 tablet 0 08/31/2022 Active pantoprazole (PROTONIX) 40 MG tablet Take 1 tablet (40 mg total) by mouth every morning on an empty stomach. 30 tablet 0 09/01/2022 Active polyethylene glycol (MIRALAX) 17 g packet Take 17 g by mouth daily. 14 each 0 09/01/2022 Active senna-docusate (PERICOLACE) 8.6-50 MG Take 2 tablets by mouth every night at bedtime. 60 tablet 0 08/31/2022 Active tamsulosin (FLOMAX) 0.4 MG CAPS Take 1 capsule (0.4 mg total) by mouth daily. 30 capsule 0 09/01/2022 Active traZODone (DESYREL) 100 MG tablet Take 1 tablet (100 mg total) by mouth every night at bedtime. 90 tablet 0 08/31/2022 Active ibuprofen 400 MG tablet Take 1 tablet (400 mg total) by mouth every 8 (eight) hours as needed. 30 tablet 0 08/31/2022 Active Active Problems Problem Noted Date Diagnosed Date Peripheral vascular disease 08/21/2022 Gait abnormality 08/21/2022 Impaired mobility and ADLs 08/21/2022 Status post bilateral below knee amputation 07/22 Social History Tobacco Use Types Packs/Day Years Used Date Smoking Tobacco: Unknown Tobacco Cessation:Counseling Given: No Alcohol Use Standard Drinks/Week Comments Not Currently 0 (1 standard drink = 0.6 oz pur e alcohol) Sex and Gender Information Value Date Recorded Sex Assigned at Male 08/18/2022 3:42 PM EDT Gender Identity Not on file Sexual Orientation Not on file Job Start Date Occupation Industry Not on file Not on file Not on file Last Filed Vital Signs Vital Sign Reading Time Taken Comments Blood Pressure 136/65 09/01/2022 5:42 AM EDT Pulse 81 09/01/2022 5:42 AM EDT Temperature 36.6 C (97.9 F) 09/01/2022 5:42 AM EDT Respiratory Rate 20 09/01/2022 5:42 AM EDT Oxygen Saturation 99% 09/01/2022 5:42 AM EDT Inhaled Oxygen Concentration - - Weight 64.6 kg (142 lb 8 oz) 08/18/2022 8:28 PM EDT Height 171.5 cm (5' 7.5 ) 08/18/2022 8:28 PM EDT Body Mass Index 21.99 08/18/2022 8:28 PM EDT Plan of Treatment Not on file Advance Directives For more information, please contact: [phone] Latest Code Status on File Code Status Date Activated Date Inactivated Comments Full Code 08/18/2022 10:28 PM 09/01/2022 4:40 PM This code status was ascertained in the following way: per Protocol . Care Teams Hospice Care Sales Consultant Relationship Specialty Start Date End Date Niyah Pepper NP [address] [place] [phone] PCP - General Nurse Practitioner 08/18/22
--- OUTSIDE RECORDS SUMMARY | 2025-04-17 17:18 | XMS_ITS ---
Author Name [facility] Organization Unknown History of Medication Use Medication Directions Dispensed Refills Start Date End Date Stat SUPPLY DME MISC Prosthesis for Bilateral lower extremities 1 each 10/20/2022 active ascorbic acid (VITAMIN C) 500 MG tablet Take 1 tablet (500 mg total) by mouth daily. Do not start before August 19, 2022. 08/19/2022 3 active ferrous sulfate 325 (65 FE) MG tablet Take 1 tablet (325 mg total) by mouth daily. Take 2 hours before or 4 hours after acid reducers. Do not start before August 19, 2022. 08/19/2022 3 active PANTOprazole (PROTONIX) 40 MG EC tablet Take 1 tablet (40 mg total) by mouth daily. Do not start before August 19, 2022. 08/19/2022 3 active polyethylene glycol (miraLAx) 17 g packet Take 1 packet (17 g total) by mouth daily. Do not start before August 19, 2022. 08/19/2022 3 active tamsulosin (FLOMAX) 0.4 MG capsule Take 1 capsule (0.4 mg total) by mouth daily. Do not start before August 19, 2022. 08/19/2022 3 active zinc sulfate (ZINCATE) 220 mg capsule Take 1 capsule (220 mg total) by mouth daily. Do not start before August 19, 2022. 08/19/2022 3 active enoxaparin (LOVENOX) 40 MG/0.4ML injection Inject 0.4 mL (40 mg total) under the skin every 24 hours around the clock. Do not start before August 19, 2022. 08/19/2022 active acetaminophen (TYLENOL) 325 MG tablet Take 2 tablets (650 mg total) by mouth every 6 (six) hours around the clock. 08/18/2022 3 active bisacodyl (DULCOLAX) 10 MG suppository Insert 1 suppository (10 mg total) into the rectum daily as needed for constipation (if no bowel movement by day 2). 08/18/2022 3 active gabapentin (NEURONTIN) 300 MG capsule Take 2 capsules (600 mg total) by mouth 2 (two) times a day. 08/18/2022 3 active ibuprofen (MOTRIN) 400 MG tablet Take 1 tablet (400 mg total) by mouth 3 times daily (every 8 hours) as needed for mild pain. 08/18/2022 3 active magnesium hydroxide (MILK OF MAGNESIA) 400 mg/5 mL suspension Take 30 mL by mouth daily as needed for constipation. 08/18/2022 3 active senna-docusate (SENNA-S) 8.6-50 MG Take 2 tablets by mouth nightly. 08/18/2022 3 active oxyCODONE (ROXICODONE) 10 mg immediate release tablet Take 1 tablet (10 mg total) by mouth every 4 (four) hours as needed for moderate pain or severe pain. Max Daily Amount: 60 mg 08/18/2022 active amLODIPine (NORVASC) 2.5 MG tablet Take 1 tablet (2.5 mg total) by mouth daily. suspended aspirin 81 MG chewable tablet Chew 1 tablet (81 mg total) daily. active atorvastatin (LIPITOR) 80 MG tablet Take 1 tablet (80 mg total) by mouth nightly. active cyclobenzaprine (FLEXERIL) 10 MG tablet Take 1 tablet (10 mg total) by mouth 2 (two) times a day as needed for muscle spasms. active gabapentin (NEURONTIN) 300 MG capsule Take 1 capsule (300 mg total) by mouth 2 (two) times a day. suspended morphine (MS CONTIN) 60 MG ER (extended release) tablet Take 1 tablet (60 mg total) by mouth twice daily (every 12 hours). suspended traZODone (DESYREL) 100 MG tablet Take 1 tablet (100 mg total) by mouth nightly. active Problems Problem Status Onset Date Problem Type Date of Resoluti on Source Neuropathy active 2022-07-29 ProblemAct [facility] PAD (peripheral artery disease) active 2022-07-29 ProblemAct [facility] Limb ischemia active 2022-07-29 ProblemAct [facility] T Osteomyelitis active 2022-07-29 ProblemAct [facility] T Hypertension active 2022-07-29 ProblemAct [facility] Encounters Encounter Type Encounter Reason Primary Diagnosis Location Date Ambulatory Encounter for follow-up examination after completed treatment for conditions other than malignant neoplasm [facility] 09/01/2022 Inpatient Osteomyelitis, unspecified [facility] 07/29/2022 Emergency ulcer [facility] 07/29/2022 Ambulatory [facility] 07/29/2022 Ambulatory [facility] 07/29/2022 Ambulatory [facility] 07/29/2022 Care Team Organization Name Specialty Phone Email Start Date End Da te [facility] SINDY PERALES Primary Care 09/01/2022 [facility] 07/30/2022 [facility] 07/30/2022 [facility] PERALES Primary Care 07/29/2022 023 [facility] 07/29/2022 07/29/2022 [facility] 07/29/2022 07/29/2022
--- OUTSIDE RECORDS SUMMARY | 2025-04-17 17:18 | XMS_ITS | Encounter Summary ---
Author Organization [facility] Address [address] [place] [address] Care Team Providers Care Lean Manufacturing Specialist Name Role Phone [place] Niyah TANNER Primary Care Provider [phone] Encounter Details Date Type Department Care Team (Latest Contact Info) Description 07/29/2022 Hospital Encounter Jones Garcia MD [address] [place] [address] DEPARTMENT OF PEDIATRICS/[place] [address] Social History Tobacco Use Types Packs/Day Years Used Date Smoking Tobacco: Every Day Cigarettes 1 30 Smokeless Tobacco: Never Alcohol Use Standard Drinks/Week Comments Not Currently 0 (1 standard drink = 0.6 oz pur e alcohol) AUDIT-C Answer Date Recorded Q1: How often do you have a drink containing alcohol? Never 07/29/2022 Q2: How many drinks containi ng alcohol do you have on a typical day when you are drinking? Patient does not drink Q3: How often do you have si x or more drinks on one occasion? Never 07/29/2022 PHQ-2 Answer Date Recorded PHQ-2 Total Score 0 07/29/2022 Sex and Gender Information Value Date Recorded Sex Assigned at Male 07/30/2022 1:49 PM EST Legal Sex Male 12:56 PM EST Gender Identity Male 07/30/2022 1:49 PM EST Sexual Orientation Heterosexual (straight) 07/30 1:49 PM EST COVID-19 Exposure Response Date Recorded In the last 10 days, have yo u been in contact with someone who was confirmed or suspected to have Coronavirus/COVID-19? No / Unsure 09/01/2022 11:14 AM EDT documented as of this encounter Functional Status * AUDIT-C Score Answer Date of Assessment Author 0 07/29/2022 8:00 PM Harjinder Horan RN * Question Answer Date of Assessment Author AUDIT-C Total Score - Male 0 07/29/2022 8:00 PM Harjinder Simmons RN Q1: How often do you have a drink containing alcohol? Never 07/29/2022 8:00 PM Harjinder Simmons RN Q2: How many drinks containing alcohol do you have on a typical day when you are drinking? Patient does not drink 07/29/2022 8:00 PM Harjinder Simmons RN Q3: How often do you have six or more drinks on one occasion? Never 07/29/2022 8:00 PM Harjinder Simmons RN * PHQ-2 Total Score Answer Date of Assessment Author 0 07/29/2022 8:00 PM Harjinder Horan RN * Question Answer Date of Assessment Author Little interest or pleasure in doing things Not at all 07/29/2022 8:00 PM Harjinder Simmons RN Feeling down, depressed, or hopeless Not at all 07/29/2022 8:00 PM Harjinder Simmons RN * Over the past 2 weeks, how often have you been bothered by any of the following problems? Question Answer Date of Assessment Author Patient Health Questionnaire -2 Score 0 07/29/2022 8:00 PM Harjinder Simmons RN * Level of Risk per Screen Answer Date of Assessment Author Low Risk 07/29/2022 8:00 PM Harjinder Horan RN documented as of this encounter Plan of Treatment Not on file documented as of this encounter Visit Diagnoses Not on filedocumented in this encounter Additional Health Concerns Infection Onset Date Last Indicated Resolved Time R/O Covid - Exposure Comment:Roommate exposure on 08/15. Serial testing to follow: Day 0= 08/15= Negative Day 3= 08/18= Day 7= 08/21= Patient to remain on quarantine isolation for full 7 days despite test results on day 3. 08/15/2022 08/16/2022 08/27/2022 11:42 PM EDT documented as of this encounter Care Teams Lean Manufacturing Specialist Relationship Specialty Start Date End Date Niyah Mora NP [address] [place] [id number] PCP - General 07/28/22 documented as of this encounter
--- OUTSIDE RECORDS SUMMARY | 2025-04-17 17:18 | XMS_ITS | Encounter Summary ---
Author Organization [facility] Address [address] [place] [address] Care Team Providers Care Pot Holder Binder Name Role Phone Arabella Morath TANNER Primary Care Provider Encounter Details Date Type Department Care Team (Latest Contact Info) Description 07/29/2022 Hospital Encounter Tanna Berrios MD [address] [facility] [address] Social History Tobacco Use Types Packs/Day Years [...] Assessment Author 0 07/29/2022 8:00 PM Harjinder Smith RN * Question Answer Date of Assessment [...] Questionnaire -2 Score 0 07/29/2022 8:00 PM Roni Simmons RN * Level of Risk per [...] documented as of this encounter Care Teams Pot Holder Binder Relationship Specialty Start Date End Date Niyah Mora NP [address] [place] [phone] PCP - General 07/28/22 documented as of this encounter
--- OUTSIDE RECORDS SUMMARY | 2025-04-17 17:18 | XMS_ITS | Clinical Summary ---
Author Organization [facility] Address [address] [place] [address] Care Team Providers Care Fuel Cell Technician Name Role Phone Niyah Mora NP Primary Care Provider Allergies No known active allergies Medications cyclobenzaprine (FLEXERIL) 10 MG tablet Take 1 tablet (10 mg total) by mouth 2 (two) times a day as needed for muscle spasms. Active traZODone (DESYREL) 100 MG tablet Take 1 tablet (100 mg total) by mouth nightly. Active aspirin 81 MG chewable tablet Chew 1 tablet (81 mg total) daily. Active atorvastatin (LIPITOR) 80 MG tablet Take 1 tablet (80 mg total) by mouth nightly. Active gabapentin (NEURONTIN) 300 MG capsuleIndications :Osteomyelitis of right foot, unspecified type (HCC) Take 2 capsules (600 mg total) by mouth 2 (two) times a day. 120 capsule 08/19/19 23 Active acetaminophen (TYLENOL) 325 MG tabletIndications: Osteomyelitis of right foot, unspecified type (HCC) Take 2 tablets (650 mg total) by mouth every 6 (six) hours around the clock. 240 tablet 08/19/19 23 Active ascorbic acid (VITAMIN C) 500 MG tabletIndications: Osteomyelitis of right foot, unspecified type (HCC) Take 1 tablet (500 mg total) by mouth daily. Do not start before August 19, 2022. 30 tablet 08/20/19 23 Active bisacodyl (DULCOLAX) 10 MG suppositoryIndicat ions:Osteomyelitis of right foot, unspecified type (HCC) Insert 1 suppository (10 mg total) into the rectum daily as needed for constipation (if no bowel movement by day 2). 12 suppository 08/19/19 23 Active enoxaparin (LOVENOX) 40 MG/0.4ML injectionIndicatio ns:Prophylaxis of Venous Thromboembolism Inject 0.4 mL (40 mg total) under the skin every 24 hours around the clock. Do not start before August 19, 2022. 08/20/19 23 Active ferrous sulfate 325 (65 FE) MG tabletIndications: Osteomyelitis of right foot, unspecified type (HCC) Take 1 tablet (325 mg total) by mouth daily. Take 2 hours before or 4 hours after acid reducers. Do not start before August 19, 2022. 30 tablet 08/20/19 23 Active ibuprofen (MOTRIN) 400 MG tabletIndications: Osteomyelitis of right foot, unspecified type (HCC) Take 1 tablet (400 mg total) by mouth 3 times daily (every 8 hours) as needed for mild pain. 90 tablet 08/19/19 23 Active magnesium hydroxide (MILK OF MAGNESIA) 400 mg/5 mL suspensionIndicati ons:Osteomyelitis of right foot, unspecified type (HCC) Take 30 mL by mouth daily as needed for constipation. 360 mL 08/19/19 23 Active oxyCODONE (ROXICODONE) 10 mg immediate release tabletIndications: Osteomyelitis of right foot, unspecified type (HCC) Take 1 tablet (10 mg total) by mouth every 4 (four) hours as needed for moderate pain or severe pain. Max Daily Amount: 60 mg 0 08/19/19 23 Active PANTOprazole (PROTONIX) 40 MG EC tabletIndications: Osteomyelitis of right foot, unspecified type (HCC) Take 1 tablet (40 mg total) by mouth daily. Do not start before August 19, 2022. 30 tablet 08/20/19 23 Active polyethylene glycol (miraLAx) 17 g packetIndications: Osteomyelitis of right foot, unspecified type (HCC) Take 1 packet (17 g total) by mouth daily. Do not start before August 19, 2022. 30 packet 08/20/19 23 Active senna-docusate (SENNA-S) 8.6-50 MGIndications:Oste omyelitis of right foot, unspecified type (HCC) Take 2 tablets by mouth nightly. 60 tablet 08/19/19 23 Active tamsulosin (FLOMAX) 0.4 MG capsuleIndications :Urinary retention Take 1 capsule (0.4 mg total) by mouth daily. Do not start before August 19, 2022. 30 capsule 08/20/19 Active zinc sulfate (ZINCATE) 220 mg capsuleIndications :Osteomyelitis of right foot, unspecified type (HCC) Take 1 capsule (220 mg total) by mouth daily. Do not start before August 19, 2022. 30 capsule 08/20/19 Active SUPPLY DME MISCIndications:Vika salas Ischemia Prosthesis for Bilateral lower extremities 1 each 1 each 10/21/19 Active Active Problems Problem Noted Date Diagnosed Date Limb ischemia 07/29/2022 PAD (peripheral artery disease) 07/29/2022 Osteomyelitis 07/29/2022 Neuropathy 07/29/2022 Hypertension 07/29/2022 Family History Relation Name Status Comments Father Mother Social History Tobacco Use Types Packs/Day Years Used Date Smoking Tobacco: Every Day Cigarettes 06 21 Smokeless Tobacco: Never Tobacco Cessation:Ready to Q uit: Not Asked; Counseling Given: Not Answered Alcohol Use Standard Drinks/Week Comments Not Currently [...] Orientation Heterosexual (straight) 07/30 1:49 PM EST Last Filed Vital Signs Vital Sign Reading Time Taken Comments Blood Pressure 92/55 08/18/2022 3:00 PM EDT Pulse 73 08/18/2022 3:00 PM EDT Temperature 36.9 C (98.5 F) 08/18/2022 3:00 PM EDT Respiratory Rate 18 08/18/2022 3:00 PM EDT Oxygen Saturation 98% 08/18/2022 3:00 PM EDT Inhaled Oxygen Concentration - - Weight 64.4 kg (142 lb) 09/01/2022 11:45 AM EDT Height 170.2 cm (5' 7 ) 09/01/2022 11:45 AM EDT Body Mass Index 22.24 09/01/2022 11:45 AM EDT Plan of Treatment Health Maintenance Due Date Last Done Comments Hepatitis C Virus Screening 1960 HIV Screening 1973 DTaP/Tdap/Td Vaccines (1 - Tdap) 07/28/1979 Pneumococcal Vaccines 50+ (1 of 2 - PCV) 07/28/1979 Colonoscopy 2005 RSV Vaccine 50 years and old er and Patients (1 - Risk 50-74 years 1-dose series) 2010 Zoster (Shingles) Vaccine (1 of 2) 2010 Lung Cancer Screening (LDCT) 08/11/2023 08/10/2022 Influenza Vaccine 12/21/2024 COVID-19 Vaccine (1 - 2023-2 5 season) 2025 Hepatitis B Vaccines Aged Out No long er eligible based on patient's age to complete this topic Procedures Procedure Name Priority Date/Time Associated Diagnosis Comments CTA CHEST FOR P.E. STAT 08/10/2022 4: 57 PM EDT from Last 3 Months or Most Recently Relevant to Health Maintenance Results * CTA Chest for P.E. (08/10/2022 4:57 PM EDT) Anatomical Region Laterality Modality Chest Computed Tomogra phy 08/10/2022 5:21 PM EDT Impressions 08/10/2022 5:35 PM EDT 1. No evidence of acute pulmonary embolus or other acute cardiopulmonary abnormality. 2. Other chronic/incidental findings, as above. Narrative 08/10/2022 5:35 PM EDT STUDY: CTA CHEST FOR P.E. INDICATION: chest pain COMPARISON: No prior similar studies were available for comparison TECHNIQUE: CT angiography was performed of the chest after administration of contrast. Iterative reconstruction was employed to reduce patient radiation exposure. 80 mL of Omnipaque 350 nonionic contrast were given in total. Coronal and sagittal reformatted images were provided. Coronal and axial MIP reformatted images were also provided. FINDINGS: Thoracic inlet: Unremarkable. Chest wall: Soft tissue density is seen in both retroareolar regions, likely due to gynecomastia. Mildly prominent bilateral axillary lymph nodes are noted, measuring up to approximately 9 mm on the left and 7 mm on the right (short axis measurements). Pulmonary vessels: There is no evidence of an intraluminal filling defect within the pulmonary arteries concerning for an acute pulmonary embolus. Aorta: Scant aortic calcifications are noted without evidence of aneurysm or rupture. Heart: The heart is normal in size. No significant pericardial effusion is identified. Mediastinum/mhanaz regions: No pathologically enlarged lymph nodes are seen. Mediastinal surgical clips are noted. Esophagus: Unremarkable. Lung parenchyma: Minimal streaky markings are seen at the right lung base, which could be due to subsegmental atelectasis and/or scarring. No lobar consolidation is identified. Mild centrilobular type emphysematous changes are noted, most prominent in the upper lobes. A 2 mm left upper lobe pulmonary nodule is noted on axial image 102 of series 5. For low risk patients (no smoking history/low risk for malignancy), no follow-up is needed. For high risk patients, consider follow-up in 12 months and if no change, no further imaging is needed. Pleura: No pneumothorax or large effusions are identified. Upper abdomen: The spleen is enlarged, measuring up to at least 14 cm, but is not imaged in entirety. Cholecystectomy clips are noted. Osseous structures: Sternotomy wires are present. Degenerative changes are seen in the spine, but no acute osseous abnormality is identified. Procedure Note Joselyn Rey MD - 08/10/2022 STUDY: CTA CHEST FOR P.E. INDICATION: chest pain COMPARISON: No prior similar studies were available for comparison TECHNIQUE: CT angiography was performed of the chest after administrationof contrast. Iterative reconstruction was employed to reduce patientradiation exposure. 80 mL of Omnipaque 350 nonionic contrast were given intotal. Coronal and sagittal reformatted images were provided. Coronal and axial MIP reformatted imageswere also provided. FINDINGS: Thoracic inlet: Unremarkable. Chest wall: Soft tissue density is seen in both retroareolar regions,likely due to gynecomastia. Mildly prominent bilateral axillary lymphnodes are noted, measuring up to approximately 9 mm on the left and 7 mmon the right (short axis measurements). Pulmonary vessels: There is no evidence of an intraluminal filling defectwithin the pulmonary arteries concerning for an acute pulmonary embolus. Aorta: Scant aortic calcifications are noted without evidence of aneurysmor rupture. Heart: The heart is normal in size. No significant pericardial effusion isidentified. Mediastinum/mahnaz regions: No pathologically enlarged lymph nodes are seen.Mediastinal surgical clips are noted. Esophagus: Unremarkable. Lung parenchyma: Minimal streaky markings are seen at the right lung base,which could be due to subsegmental atelectasis and/or scarring. No lobarconsolidation is identified. Mild centrilobular type emphysematous changesare noted, most prominent in the upper lobes. A 2 mm left upper lobe pulmonary nodule is noted on axialimage 102 of series 5. For low risk patients (no smoking history/low riskfor malignancy), no follow-up is needed. For high risk patients, considerfollow-up in 12 months and if no change, no further imaging is needed. Pleura: No pneumothorax or large effusions are identified. Upper abdomen: The spleen is enlarged, measuring up to at least 14 cm, butis not imaged in entirety. Cholecystectomy clips are noted. Osseous structures: Sternotomy wires are present. Degenerative changes areseen in the spine, but no acute osseous abnormality is identified. IMPRESSION: 1. No evidence of acute pulmonary embolus or other acute cardiopulmonaryabnormality. 2. Other chronic/incidental findings, as above. Timo Phelps DO [facility] [place] CT ORDERABLES Final Result from Last 3 Months or Most Recently Relevant to Health Maintenance Insurance MEDICARE PART A & B MEDICARE PART A & B Advance Directives * Full Code (Latest Code Status on File) Date Activated Date Inactivated Comments 08/06/2022 5:00 PM * Full Code Date Activated Date Inactivated Comments 07/29/2022 8:36 PM 08/06/2022 5:00 PM Care Teams Fuel Cell Technician Relationship Specialty Start Date End Date Niyah Mora NP [address] [place] [id number] PCP - General 07/28/22
== END 2025-04-17 15:21 | disposition home or self-care (01) ==
LOC: HO.HID 14:28
PROVIDERS: PCP Nurse Practitioner; Visit Provider Internal Medicine
DX: M86.9 Osteomyelitis, unspecified (principal)
CPT/HCPCS: 99203

== ENCOUNTER → 2025-04-17 14:28 | Outpatient (BNVA) | payer OTHER, SELFPAY | PROVIDERS: PCP Nurse Practitioner; Visit Provider Internal Medicine | DX: M86.9 Osteomyelitis, unspecified (principal); T87.44 Infection of amputation stump, left lower extremity; Z89.511 Acquired absence of right leg below knee | CPT/HCPCS: 99202 ==